=== PATIENT | male | born 1945 | race Caucasian/White ===

== ENCOUNTER → 2020-05-11 14:29 | Outpatient (BNVA) | payer MEDICARE, SELFPAY | PROVIDERS: PCP Internal Medicine; Referring Provider Internal Medicine; Visit Provider Internal Medicine | DX: I25.10 Atherosclerotic heart disease of native coronary artery without angina pectoris (principal); I21.4 Non-ST elevation (NSTEMI) myocardial infarction; I10 Essential (primary) hypertension; Z95.5 Presence of coronary angioplasty implant and graft | CPT/HCPCS: 93005; 99212 ==

== ENCOUNTER 2020-09-27 10:36 | Emergency (ER) | payer MEDICARE, SELFPAY ==
--- NOTE | ~2020-09-27 | XR_ITS ---
EXAMINATION: XR RIBS, LEFT CLINICAL INFORMATION: Fall COMPARISON: Previous chest x-ray December 2018 TECHNIQUE: 3 views of the left ribs and one view of the chest were obtained. FINDINGS: The cardiac and mediastinal contours are normal. The lungs are clear. There is no pleural effusion or pneumothorax. No rib fracture is seen. There are degenerative changes of the thoracic spine. There are degenerative changes at the right shoulder joint. XR/XR ribs LT min 3V w CXR1V IMPRESSION: No rib fracture is seen. No evidence for acute disease in the chest.
[2020-09-27 10:37] VITALS: BP 159/82; PULSE 71; RESP 18; TEMP 36.8; O2SAT 99; BMI 24.3
--- NOTE | 2020-09-27 11:20 | ED.FALL ---
HPI - Fall General Chief Complaint: Fall Stated Complaint: fell pain lt side Time Seen by Provider: 09/27/20 11:15 History of Present Illness HPI Narrative: Complains of left rib pain after a fall. Several days ago, tripped on a debris in the street , there is no shortness of breath is no palpitations there is no difficulty breathing, it does hurt to take a deep breath, pain is not related to exertion there is no diaphoresis abdominal pain or nausea Related Data Home Medications Medication Instructions Recorded Confirmed aspirin 81 mg tablet,delayed 81 mg PO DAILY 05/11/20 05/11/20 release atorvastatin 80 mg tablet 80 mg PO DAILY 05/11/20 05/11/20 metoprolol tartrate 25 mg tablet 25 mg PO BID 05/11/20 05/11/20 Allergies Allergy/AdvReac Type Severity Reaction Status Date / Time No Known Allergies Allergy Verified 05/11/20 09:48 [No Known Allergies*] Review of Systems Review of Systems: Positive for left rib pain There is no dizziness no weakness no fever no chills no fainting no feeling faint no headache no head injury no vision changes no neck pain no numbness weakness or tingling no shortness of breath no abdominal pain no nausea or vomiting no pain in extremities no skin rashes no numbness or weakness PMFSH Past Medical History Source: nursing notes reviewed Medical History Atherosclerotic cardiovascular disease Essential hypertension NSTEMI (non-ST elevated myocardial infarction) Surgical History History of cardiac catheterization (~12/30/18) History of tonsillectomy Stented coronary artery Family History Family History Father Cardiovascular disease Mother Cardiovascular disease Diabetes Social History Social History Smoking Status: Never smoker Advance Directives: Yes Advance Directives Information Provided: Yes Advance Directives on File: No Physical Exam Vital Signs: Vital Signs: Last Vital Signs Temp 98.2 F 09/27/20 10:37 Pulse 71 09/27/20 10:37 Resp 18 09/27/20 10:37 BP 159/82 H 09/27/20 10:37 Pulse Ox 99 09/27/20 10:37 Body Mass Index 24.3 General appearance no acute distress, relaxed and cooperative A&O x3 Head is normocephalic atraumatic Neck is supple The chest wall had tenderness over the left mid and lower rib area, pain is reproduced with deep breath, chest was clear to auscultation bilaterally with full symmetric equal breath sounds The heart no murmurs The abdomen soft and nontender The extremities full range of motion x4 without tenderness swelling or deformity Neuro motor is 5/5 x4 is sensation is intact and symmetrical and gait is normal Course Course Course Narrative: Chest x-ray came back negative with no evident fractures of the left ribs Exam is consistent with occult rib fracture versus contusion and patient is breathing comfortably and ambulating easily and was discharged Discharge Plan Discharge Clinical Impression: Contusion of rib on left side Patient Disposition: Home, Self-Care Additional Instructions: Your x-ray was normal, no obvious rib fracture Use Tylenol as needed Return any time for any worse condition or any concerns Prescriptions: No Action metoprolol tartrate 25 mg tablet 25 mg PO BID RF: 0 aspirin 81 mg tablet,delayed release (DR/EC) 81 mg PO DAILY RF: 0 atorvastatin 80 mg tablet 80 mg PO DAILY RF: 0 Interventions: ED Discharge Assessment Last Done: 09/27/20 12:51 Discharge Date/Time: 09/27/20 12:52
== END 2020-09-27 12:52 | disposition home or self-care (01) ==
PROVIDERS: Emergency Provider Emergency Medicine; PCP Internal Medicine
DX: S20.212A Contusion of left front wall of thorax, initial encounter (principal); W01.0XXA Fall on same level from slipping, tripping and stumbling without subsequent striking against object, initial encounter; I10 Essential (primary) hypertension; I25.2 Old myocardial infarction; Y93.01 Activity, walking, marching and hiking; Y92.480 Sidewalk as the place of occurrence of the external cause; Y99.9 Unspecified external cause status
CPT/HCPCS: 71101; 99283

== ENCOUNTER → 2021-04-19 12:56 | Outpatient (REF) | payer MEDICARE, SELFPAY ==
--- NOTE | 2021-04-19 13:02 | CA_ITS ---
Transthoracic Echocardiogram Patient (Last, First, Middle): Nain Vizcaino, Gender: Male Date of : 1945 Age: 75 Procedure Date: 04/19/2021 Procedure Type: Transthoracic Echocardiogram Location: OP Height: 167.64 cm Weight: 70.76 kg BSA: 1.80 m2 Heart Rate: bpm BP: 130 / 80 mmHg Irrigation Manager: Referring MD: Victoriano Lee MD Symptoms: I21.4 - Non-ST elevation (NSTEMI) myocardial infarction Study Quality: Good ECG Rhythm: Sinus Conclusions: - The left ventricular systolic function is low normal. The calculated ejection fraction is 52% by biplane method. - Possible mild hypokinesis at basal inferior wall. - No obvious valvular pathology seen on this study. Findings Left Ventricle Normal left ventricular cavity size. There is mildly increased left ventricular wall thickness. The left ventricular systolic function is low normal. The calculated ejection fraction is 52% by biplane method. E/E prime ratio is between 8 and 15 consistent with indeterminate filling pressures. Evidence suggests grade I (mild) diastolic dysfunction. Possible mild hypokinesis at basal inferior wall. Right Ventricle Normal right ventricular cavity size and systolic function. Atria Both atria are normal in size. Aortic Valve There is a normal trileaflet aortic valve. There is no aortic valve stenosis. There is no aortic valve regurgitation. Mitral Valve The mitral valve appears normal. There is trace mitral valve regurgitation. There is no mitral valve stenosis. Pulmonic Valve The pulmonic valve was not well visualized. Tricuspid Valve Normal tricuspid valve structure. There is trace tricuspid valve regurgitation. The pulmonary artery systolic pressure is normal. Great Vessels The aortic annulus, sinuses of valsalva, and asc aorta are normal in size. Venous The inferior vena cava is normal in size and collapses greater than 50% with inspiration. Pericardium/Pleural There is no evidence of pericardial effusion. Prior Study Comparison Changes noted compared to prior study dated: 02/27/2019. Slight decrease in LVEF. Recommendations, Care & Conclusions No obvious valvular pathology seen on this study. Measurements 2D Linear Measurements IVSd: 1.20 0.6-0.9/0.6-1.0 cm LVIDd: 4.08 3.9-5.3/4.2-5.9 cm LVIDd Index: 2.27 2.4-3.2/2.2-3.1 cm/m2 LVIDs: 2.70 2.0-3.6 cm LVPWd: 1.26 0.7-1.1 cm Ao Root: 3.40 2.1-3.5 cm LA Diam: 3.70 2.7-3.8/3.0-4.0 cm LAIDs Index: 2.06 1.5-2.3 cm/m2 LV Mass: 220.28 67-162/88-224 g LV Mass Index: 122.38 43-95/49-115 g/m2 LVOT Diam: 2.40 3.0+(-)1.3 cm 2D Systolic Function EF 4C: 58.30 >55% EF 2C: 48.20 >55% EF BiP: 52.00 >55% Mitral Valve MV Pk E: 0.51 MV PK A: 0.85 MV Decel Time: 263.00 E/A: 0.60 E'Lateral: 6.96 E'Medial: 4.03 E/E' Med: 12.70 E/E' Lat: 7.30 PHT: 77.00 MVA PHT: 2.86 Decel Cuming: 1.94 Aortic Valve AoV Pk Law: 1.13 AoV Mn Law: 0.66 AoV VTI: 0.23 AoV Pk Grad: 5.00 Aov Mn Grad: 2.00 YAW Cont.VTI: 3.10 LVOT LVOT Pk Law: 0.85 LVOT Mn Law: 0.51 LVOT VTI: 0.16 LVOT Pk Grad: 3.00 LVOT Mn Grad: 1.00 LVOT Diam: 2.40 LVOT Area: 4.52 Diastolic Function MV Pk E: 0.51 MV Pk A: 0.85 E/A: 0.60 E'Medial: 4.03 E/E' Med: 12.70 E' Laterial: 6.96 E/E' Lat: 7.30 Right Ventricle TAPSE (mm): 34.00 TVS' Law: 11.00 Tricuspid Valve TR Pk Law: 1.98 TR Pk Grad: 16.00 Great Vessels Aorta Ao Root-2D: 3.40 2.0-3.7 cm Ao Asc: 3.50 2.1-3.4 cm Pulmonary Valve PV Pk Law: 1.14 Peak PV Grad: 5.00 Updated in Other Vendor System with Status of Final Victoriano Lee MD electronically signed on 04/19/2021 5:11:28 PM with status of Final
== END ==
LOC: HO.CARD 12:56
PROVIDERS: PCP Internal Medicine; Visit Provider Internal Medicine
DX: I21.4 Non-ST elevation (NSTEMI) myocardial infarction (principal)
CPT/HCPCS: 93306

== ENCOUNTER → 2021-05-11 14:08 | Outpatient (BNVA) | payer MEDICARE, SELFPAY | PROVIDERS: PCP Internal Medicine; Referring Provider Internal Medicine; Visit Provider Internal Medicine | DX: I25.10 Atherosclerotic heart disease of native coronary artery without angina pectoris (principal); I10 Essential (primary) hypertension; Z95.5 Presence of coronary angioplasty implant and graft | CPT/HCPCS: 93005; 99212 ==

== ENCOUNTER 2021-08-10 13:11 | Outpatient (REF) | payer MEDICARE, SELFPAY ==
[2021-08-10 13:30] LABS: Binax Internal Control QC Valid; Binax Now Covid-19 Ag Negative (Negative)
== END 2021-08-10 13:12 | disposition home or self-care (01) ==
LOC: HO.LAB 13:11
PROVIDERS: Visit Provider Internal Medicine
DX: Z20.822 Contact with and (suspected) exposure to COVID-19 (principal)
CPT/HCPCS: C9803

== ENCOUNTER → 2021-11-09 13:24 | Outpatient (BNVA) | payer MEDICARE, SELFPAY | PROVIDERS: PCP Internal Medicine; Referring Provider Internal Medicine; Visit Provider Internal Medicine | DX: I25.10 Atherosclerotic heart disease of native coronary artery without angina pectoris (principal); I10 Essential (primary) hypertension; Z95.5 Presence of coronary angioplasty implant and graft | CPT/HCPCS: 93005; 99212 ==

== ENCOUNTER 2022-02-10 10:21 | Emergency (ER) | payer MEDICARE, SELFPAY ==
[2022-02-10 10:27] VITALS: BP 165/87; PULSE 89; RESP 18; TEMP 36.8; O2SAT 97; BMI 25.7
--- NOTE | 2022-02-10 11:19 | ED.GENADULT ---
HPI - General Adult General Chief complaint: Wound/Laceration Stated complaint: wasp sting on L leg Time Seen by Provider: 02/10/22 11:19 Source: patient Mode of arrival: ambulatory Limitations: no limitations History of Present Illness HPI narrative: Patient is a 76 year old male presenting to the emergency department today with wasp stings to his left lower leg. Patient states that he was bit by a couple of wasps a couple of days ago and has been trying hydrocortisone cream but it is still very itchy. Patient denies any dizziness, lightheadedness, abdominal pain, nausea, vomiting, fever, chills, blurry vision, double vision, loss of vision, chest pain, difficulty breathing, shortness of breath, back pain, night sweats, pain with urination, increased urinary frequency, increased urinary urgency, blood in his urine or stool, syncope or a near syncopal episode, recent trauma or falls, bowel incontinence, bladder incontinence, bowel retention, bladder retention, or any other complaints at this time. Onset (ago): day(s) Location: right and lower extremity Radiation: non-radiation Severity: mild Severity scale (1-10): 2 Quality: dull Relieving factors: none Exacerbating factors: none Associated symptoms: denies other symptoms Treatments prior to arrival: none Related Data Previous Rx's Medication Instructions Recorded aspirin 81 mg tablet,delayed 81 mg PO DAILY 90 days #90 tabs 01/20/21 release metoprolol tartrate 25 mg tablet 25 mg PO BID #180 tabs 08/19/21 atorvastatin 80 mg tablet 80 mg PO DAILY 90 days #90 tabs 08/22/21 prednisone 20 mg tablet 20 mg PO DAILY 10 days #15 tabs 02/10/22 Allergies Allergy/AdvReac Type Severity Reaction Status Date / Time No Known Allergies Allergy Verified 11/09/21 13:28 [No Known Allergies*] Review of Systems Constitutional: Constitutional: Reports no additional constitutional complaints, Denies chills, Denies fever(s) and Denies night sweats Eyes: Eyes: Reports no additional eye complaints, Denies blurry vision, Denies change in vision, Denies diplopia, Denies eye discharge, Denies loss of vision and Denies eye pain ENT: Denies dizziness Cardiovascular: Cardiovascular: Reports no additional cardiovascular complaints, Denies chest pain, Denies lightheadedness, Denies Loss of Consciousness and Denies dyspnea Respiratory: Respiratory: Reports no additional respiratory complaints and Denies dyspnea Gastrointestinal: Gastrointestinal: Reports no additional gastrointestinal complaints, Denies abdominal pain, Denies melena, Denies hematochezia, Denies change in bowel habits and Denies change in stool character Genitourinary: Genitourinary: Reports no additional male genitourinary complaints, Denies hematuria, Denies oliguria, Denies difficulty urinating, Denies dysuria, Denies urinary frequency, Denies urinary hesitancy, Denies urinary incontinence and Denies urinary urgency Musculoskeletal: Musculoskeletal: Reports no additional musculoskeletal complaints, Denies numbness and Denies tingling Comments: left lower leg swelling and redness around 2 insect bites Neurologic: Denies dizziness, Denies loss of vision, Denies numbness and Denies tingling Psychiatric: Psychiatric: Reports no additional psychiatric complaints Endocrine: Endocrine: Reports no additional endocrine complaints Hematologic/Lymphatic: Hematologic/Lymphatic: Reports no additional hematologic/lymphatic complaints Allergic/Immunologic: Allergic/Immunologic: Reports no additional allergic/immunologic complaints PMFSH Past Medical History Attestation statement: The following information was validated with the patient. Source: old records reviewed Medical History Atherosclerotic cardiovascular disease Essential hypertension NSTEMI (non-ST elevated myocardial infarction) Surgical History History of cardiac catheterization (~12/30/18) History of tonsillectomy Stented coronary artery Family History Family History Father Cardiovascular disease Mother Cardiovascular disease Diabetes Social History Social History Patient Tobacco Use Status: Never used Tobacco Advance Directives: No Physical Exam ED Vital Signs: Vital Signs - 24 hr 02/10/22 10:27 Temperature 98.2 F Pulse Rate 89 Respiratory Rate 18 Blood Pressure 165/87 H Pulse Oximetry 97 Oxygen Delivery Method Room Air BMI result Body Mass Index 25.7 Const General: cooperative, no acute distress, alert and awake Nutritional Appearance: well nourished Orientation/consciousness: patient oriented x3 Limitations: no limitations HENMT Head: Yes normal to inspection and Yes atraumatic Ears: hearing grossly normal bilaterally and external ears normal General nose exam: Normal external nose present, no nasal discharge noted and no epistaxis Face and sinus: Yes normal facial exam, No abrasion and No laceration Mouth: Normal oral and palatal mucosa present, no drooling and no muffled voice Eyes General: appearance normal, both eyes and all related structures Periorbital: periorbital findings normal Eyelids: Yes eyelids normal Conjunctivae: conjunctivae normal Pupils: Equal, round and reactive pupils present EOM: EOMs intact bilaterally Neck Neck: Yes normal visual inspection, Yes full ROM and Yes no lymphadenopathy Chest Chest palpation & inspection: normal inspection of the chest Resp Effort & Inspection: normal respiratory effort and able to speak in complete sentences Auscultation: clear to auscultation bilaterally Cardio Rate: regular rate Rhythm: regular rhythm GI Inspection: Yes normal to inspection Skin Other: 2 small insect bites to the left lower leg, with minimal erythema around them Neuro General: patient oriented x3 and moves all extremities Cranial nerves: Yes Equal, round and reactive pupils present Cognition (Neuro): normal cognition Motor exam (neuro): 5/5 motor strength present throughout Sensory Exam: Normal double simultaneous stimulation for sensation Coordination: [id number] test normal Extrem General: Yes normal to inspection, Yes full ROM and Yes capillary refill normal Psych Appearance: grossly normal Mental Status: mental status grossly normal Affect: normal affect Attitude: cooperative Thought process: Normal thought process present Thought content: Normal thought content present Insight: Good insight present (Psych) Medical Decision Making MDM Narrative Medical decision making narrative: Patient is a 76 year old male presenting to the emergency department today with insect bites to his left lower leg. Patient's physical exam showed 2 insect bites to the left lower leg with minimal erythema surrounding them. I explained my physical exam findings to the patient. I answered all questions asked by the patient. I stressed the importance of the patient taking his medication as prescribed. I stressed the importance of the patient following up with his primary care provider. I stressed the importance of the patient returning to the emergency department immediately if his symptoms were to worsen or if he were to develop any dizziness, shortness of breath, difficulty breathing, chest pain, blurry vision, loss of vision, nausea, vomiting, abdominal pain, fever, chills, back pain, or any other complaints. Patient verbalized agreement and understanding with this treatment plan and discharge. Differential Diagnosis Differential Diagnosis: insect bites Medical Records Medical records reviewed: Yes I reviewed the patient's medical records. Discharge Plan Discharge Clinical Impression: Insect bite Patient Disposition: Home, Self-Care Instructions: Insect Bite or Sting (ED) Additional Instructions: Follow up with your primary care provider. Return to the emergency department immediately if your symptoms worsen or if you develop any dizziness, shortness of breath, difficulty breathing, chest pain, blurry vision, loss of vision, nausea, vomiting, abdominal pain, fever, chills, back pain, or any other complaints. Prescriptions: New prednisone 20 mg tablet 20 mg PO DAILY 10 Days Qty: 15 0RF Rx Instructions: Take 2 tabs for 5 days THEN; take 1 tab for 5 days No Action aspirin 81 mg tablet,delayed release (DR/EC) 81 mg PO DAILY 90 Days Qty: 90 4RF metoprolol tartrate 25 mg tablet 25 mg PO BID Qty: 180 3RF atorvastatin 80 mg tablet 80 mg PO DAILY 90 Days Qty: 90 3RF Referrals: Urban Alcaraz MD [Primary Care Provider] - Interventions: ED Discharge Assessment Last Done: 02/10/22 11:55 Discharge Date/Time: 02/10/22 11:56 Print Language: Kazakh
== END 2022-02-10 11:56 | disposition home or self-care (01) ==
PROVIDERS: Emergency Provider Student in an Organized Health Care Education/Training Program; PCP Internal Medicine
DX: T63.461A Toxic effect of venom of wasps, accidental (unintentional), initial encounter (principal); L29.9 Pruritus, unspecified; Y92.9 Unspecified place or not applicable
CPT/HCPCS: 99282; 99283

== ENCOUNTER 2022-08-14 15:43 | Outpatient (REF) | payer MEDICARE, SELFPAY ==
--- NOTE | ~2022-08-14 | CT_ITS ---
EXAMINATION: CT ABDOMEN WITHOUT AND WITH CONTRAST CLINICAL INFORMATION: LFT elevation. COMPARISON: None TECHNIQUE: Contiguous axial thin section helical images of the abdomen were performed before and after the administration of oral contrast and 85 mL of Omnipaque 350 intravenous contrast. The data set was reformatted in the coronal and sagittal planes and reviewed on an independent workstation. This CT examination was performed using dose optimization techniques as appropriate, variously including the following: *Automated exposure control *Adjustment of mA and/or kV according to patient size (this includes techniques or standardized protocols for targeted exams where dose is matched to indication/reason for exam; i.e. extremities or head) *Use of iterative reconstruction technique DLP: 699 mGy-cm FINDINGS: LUNG BASES: The lung bases are clear. The heart size is normal. 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 LIVER, GALLBLADDER, AND BILIARY TREE: The liver is normal size, contour and density. No focal lesion or intrahepatic ductal dilatation seen. Main and the right and left portal veins are well opacified. The hepatic veins are small but patent. The splenic vein is patent. There is no visualization of varices. PANCREAS: The pancreas is homogeneous in density without focal lesion. SPLEEN: The spleen is normal size and appears unremarkable. ADRENAL GLANDS AND KIDNEYS: Bilateral adrenal glands are symmetric and normal. 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 There is a small nonenhancing hypodensity upper pole left kidney likely small cyst. There are bilateral extrarenal kidney pelvises. BOWEL LOOPS: There is scattered stool and gas seen throughout the colon without significant distention. The small bowel loops are normal caliber. Appendix is not seen. No free air or free fluid seen. LYMPH NODES: Normal. VASCULAR: Unremarkable. BONES: There is mild degenerative disc changes with vacuum disc phenomena and ventral spondylosis L2-L3 through L5-S1 disc levels. No aggressive lytic or sclerotic process seen. CT/CT abdomen wo/w IV con IMPRESSION: 1. No acute intra-abdominal process seen. 2. 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 3. Small cyst upper pole left kidney. Bilateral extrarenal kidney pelvises. 4. Mild constipation. 5. 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 6. Degenerative disc changes with vacuum disc phenomena and ventral spondylosis L2-L3 through L5-S1 disc levels. Fleischner guidelines were followed.
[2022-08-14] MEDS: iohexoL 350 MG/ML 100 ML INFUS..BTL 85 ML IV (16:54)
== END 2022-08-14 15:44 | disposition home or self-care (01) ==
LOC: HO.CT 15:43
PROVIDERS: Visit Provider Internal Medicine
DX: R79.89 Other specified abnormal findings of blood chemistry (principal)
CPT/HCPCS: 74170; Q9967

== ENCOUNTER 2022-09-16 04:58 | Emergency (ER) | payer MEDICARE, SELFPAY ==
--- NOTE | 2022-09-16 | ECG_ITS ---
Test Reason : CHEST PAIN Blood Pressure : / mmHG Vent. Rate : 075 BPM Atrial Rate : 075 BPM P-R Int : 144 ms QRS Dur : 092 ms QT Int : 382 ms P-R-T Axes : 053 007 018 degrees QTc Int : 426 ms Normal sinus rhythm Minimal voltage criteria for LVH, may be normal variant ( R in aVL ) Borderline ECG When compared with ECG of 26-DEC-2018 07:53, No significant change was found Referred By: Generic ED Physician Electronically Signed By:TAI LEIVA MD
--- NOTE | ~2022-09-16 | US_ITS ---
EXAMINATION: ULTRASOUND DUPLEX ARTERIAL AND VENOUS EXAM CLINICAL INFORMATION: Epigastric pain. Known IVC mass. COMPARISON: None TECHNIQUE: Routine ultrasound duplex arterial study of portal and hepatic veins and hepatic artery was performed. FINDINGS: Portal veins: There is normal patency and hepatopedal flow seen in the extrahepatic portal vein, main portal vein, right and left portal vein branches. Hepatic artery: There is normal antegrade flow seen in the main, right and left hepatic artery. Peak systolic velocity measures 64.7 cm/second. In the main hepatic artery. The right hepatic artery velocity measures 33.2 cm/second in the left hepatic artery velocity measures 87.7 cm/second. Hepatic veins: The right and left hepatic vein and the main hepatic veins are patent. 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 Splenic vein: patent. US/US duplex arterial venous comp IMPRESSION: Normal liver Doppler exam. There is antegrade flow seen in the portal veins. Hepatic and splenic veins are patent. Normal IVC wave form. The hepatic artery has antegrade flow and normal velocities
[2022-09-16 05:04] VITALS: BP 133/80; BP 146/81; PULSE 70; PULSE 77; RESP 16; TEMP 36.7; O2SAT 94; O2SAT 97; BMI 26.6
[2022-09-16 05:29] VITALS: BP 131/74; PULSE 77; RESP 13; O2SAT 98
--- NOTE | 2022-09-16 05:32 | ED.CHESTPAIN ---
HPI - Chest Pain General Chief Complaint: Chest Pain Stated Complaint: Chest Pain Time Seen by Provider: 09/16/22 05:32 Source: patient Mode of arrival: EMS History of Present Illness HPI narrative: This is a pleasant 77-year-old male who arrives via EMS no me called due to onset of epigastric/chest pain that started approximately 130 in the morning and woke him from sleep. Patient states that he took his nitro pills as prescribed by Dr. Lee as well as taking to aspirin. Patient states that the pain continued which prompted him to call EMS. EN route EMS gave him 2 additional aspirin and patient arrives asymptomatic for chest pain or epigastric discomfort. His history is significant for an IVC mass that his ground instructor basic, Dr. Lee as well has vascular surgeon Dr. Aragon are aware of. Patient has an appointment on 09/[address] Otoniel ramirez at [facility] for further evaluation of this mass. Related Data Previous Rx's Medication Instructions Recorded prednisone 20 mg tablet 20 mg PO DAILY 10 days #15 tabs 02/10/22 atorvastatin 80 mg tablet 80 mg PO DAILY 90 days #90 tabs 08/16/22 aspirin 81 mg tablet,delayed 81 mg PO DAILY #90 tabs 08/18/22 release metoprolol tartrate 25 mg tablet 25 mg PO BID #180 tabs 08/23/22 Allergies Allergy/AdvReac Type Severity Reaction Status Date / Time No Known Allergies Allergy Verified 11/09/21 13:28 [No Known Allergies*] Review of Systems Review of Systems: Pertinent positives and negatives as stated in HPI PMFSH Past Medical History Source: nursing notes reviewed Medical History Atherosclerotic cardiovascular disease Essential hypertension NSTEMI (non-ST elevated myocardial infarction) Surgical History History of cardiac catheterization (~12/30/18) History of tonsillectomy Stented coronary artery Family History Family History Father Cardiovascular disease Mother Cardiovascular disease Diabetes Social History Social History Alcohol intake: current Alcohol intake frequency: holidays/special occasions only Patient Tobacco Use Status: Never used Tobacco Smoked in Last 30 Days: No Use of substances other than those prescribed or required for medical reasons: No Advance Directives: No Advance Directives Information Provided: No Physical Exam Vital Signs: Vital Signs: Last Vital Signs Temp 98.1 F 09/16/22 05:04 Pulse 77 09/16/22 05:29 Resp 13 09/16/22 05:29 BP 131/74 09/16/22 05:29 Pulse Ox 98 09/16/22 05:29 O2 Del Method 09/16/22 05:29 BMI result Body Mass Index 26.6 VITAL SIGNS: Reviewed. GENERAL: Well developed, well nourished, in no acute distress. HEAD: Normocephalic/atraumatic EYES: PERRLA, EOMI LUNGS: Normal breath sounds. No adventitious sounds or accessory muscle use. SpO2<98> CARDIOVASCULAR: Regular rate and rhythm without noted murmurs, no JVD or lower extremity edema. ABDOMEN: Soft, non-tender, non-distended with bowel sounds. MUSCULOSKELETAL: No tenderness, deformities, or effusions noted on gross inspection. EXTREMITIES: No cyanosis, clubbing or edema. SKIN: Inspection of the skin reveals no rashes NEUROLOGIC: Alert and oriented x 4. Strength and sensation to light touch were grossly intact x 4. Medical Decision Making Medical Decision Making MDM Narrative: 77-year-old male with history and clinical presentation suggestive of possible angina. On review all investigations at this time there are no acute findings and patient remains asymptomatic. Signed out to Dr Grace Singh #2 - Abd Ultrasound Differential Diagnosis Please see the discussion above Lab Data Please see the discussion above 09/16/22 05:32 09/16/22 05:32 Labs: Lab Results 09/16/22 09/16/22 09/16/22 Range/Units 05:32 05:32 05:32 WBC 8.1 (4.8-10.8) X10*3/uL RBC 4.53 L (4.60-5.80) X10*6/uL Hgb 14.4 (14.0-18.0) g/dl Hct 43.8 (42.0-52.0) % MCV 96.7 (80.0-98.0) fL MCH 31.8 (27.0-33.0) pg MCHC 32.9 (31.0-36.0) g/dl RDW 12.5 (11.0-16.0) % Plt Count 172 (160-400) X10*3/uL MPV 10.5 (9.4-12.4) fL Immature Gran % (Auto) 0.2 (0.0-0.4) % Neut % (Auto) 72.2 (45-73) % Lymph % (Auto) 15.9 L (20-40) % [place] % (Auto) 9.0 (2-11) % Eos % (Auto) 2.2 (0-4) % Baso % (Auto) 0.5 (0-2) % Lymph # (Auto) 1.3 (1.2-4.9) X10*3/uL [place] # (Auto) 0.7 (0.1-1.2) X10*3/uL Eos # (Auto) 0.2 (0.0-0.4) X10*3/uL Baso # (Auto) 0.0 (0.0-0.2) X10*3/uL Abs Immat Gran (auto) 0.02 (0.00-0.03) X10*3/uL Absolute Neuts (auto) 5.8 (2.0-8.3) x10*3/uL Absolute Nucleated RBC 0.000 (0.0-0.012) X10*3/uL Nucleated RBC % (auto) 0.0 (0.0-0.2) /100WBC Sodium 140 (135-145) mmol/L Potassium 4.7 (3.3-5.1) mmol/L Chloride 109 H (96-108) mmol/L Carbon Dioxide 23 (22-29) mmol/L Anion Gap 13 (12-20) BUN 13 (9-16) mg/dL Creatinine 0.68 (0.5-1.4) mg/dL Estim Creat Clear Calc 79.4 Estimated GFR > 60 Random Glucose 100 (60-115) mg/dL Calcium 8.8 (8.4-10.2) mg/dL Troponin I High Sens 4.3 (<3.5-35.0) ng/L Independent Interpretation I performed an independent interpretation of an: EKG Interpretation: Normal sinus rhythm, HR-75, no STEMI, CT/QRS/QTC is within normal limits. External Record Review External record reviewed: Outpatient record and Prior outpatient labs Chronic Conditions CAD Critical Care Time Critical Care Time Critical Care Time: Yes Total Critical Care Time: 30 Attestation: I personally attest to this time spent taking care of the patient. Discharge Plan Discharge Clinical Impression: Chest pain Patient Disposition: Still a Patient Prescriptions: No Action atorvastatin 80 mg tablet 80 mg PO DAILY 90 Days Qty: 90 3RF aspirin 81 mg tablet,delayed release (DR/EC) 81 mg PO DAILY Qty: 90 3RF metoprolol tartrate 25 mg tablet 25 mg PO BID Qty: 180 3RF prednisone 20 mg tablet 20 mg PO DAILY 10 Days Qty: 15 0RF Rx Instructions: Take 2 tabs for 5 days THEN; take 1 tab for 5 days
[2022-09-16 05:40] LABS: MANUAL DIFF FLAG NO
[2022-09-16 05:41] LABS: Basophils Percent Auto 0.5 % (0-2); Eosinophils Absolute Auto 0.2 X10*3/uL (0.0-0.4); Eosinophils Percent Auto 2.2 % (0-4); Hematocrit 43.8 % (42.0-52.0); Hemoglobin 14.4 g/dl (14.0-18.0); Imm Gran Abs Auto 0.02 X10*3/uL (0.00-0.03); Imm Gran Pct Auto 0.2 % (0.0-0.4); Lymphocytes Absolute Auto 1.3 X10*3/uL (1.2-4.9); Lymphocytes Percent Auto 15.9 % (20-40); Mean Corpuscular HGB Conc 32.9 g/dl (31.0-36.0); Mean Corpuscular Hemoglobin 31.8 pg (27.0-33.0); Mean Corpuscular Volume 96.7 fL (80.0-98.0); Mean Platelet Volume 10.5 fL (9.4-12.4); Monocytes Absolute Auto 0.7 X10*3/uL (0.1-1.2); Neutrophils Absolute Auto 5.8 x10*3/uL (2.0-8.3); Neutrophils Percent Auto 72.2 % (45-73); Platelet Count 172 X10*3/uL (160-400); Red Blood Count 4.53 X10*6/uL (4.60-5.80); Red Cell Distribution Width 12.5 % (11.0-16.0); White Blood Count 8.1 X10*3/uL (4.8-10.8)
--- NOTE | 2022-09-16 05:50 | PC.NURSE ---
Pt A&Ox4, reports waking up around 0130 this AM and feeling a dull pain in substernal chest, nonradiating. Rates pain 3/10, now resolved after taking 3 nitros and 2 baby asprins, EMS also gave an adition of 2 baby asprins. Pt placed on bedside monitor, EKG obtained, lab work collected and sent to lab.
[2022-09-16 05:54] LABS: Anion Gap 13 (12-20); Blood Urea Nitrogen 13 mg/dL (9-16); Calcium 8.8 mg/dL (8.4-10.2); Carbon Dioxide 23 mmol/L (22-29); Chloride 109 mmol/L (96-108); Creatinine Clr Calc Pharmacy 79.4; Estimated Glomerular Filt Rate > 60; Glucose Random 100 mg/dL (60-115); Potassium 4.7 mmol/L (3.3-5.1); Sodium 140 mmol/L (135-145)
[2022-09-16 06:02] LABS: Troponin-I High Sensitivity 4.3 ng/L (<3.5-35.0)
--- NOTE | 2022-09-16 09:17 | PC.NURSE ---
pt moved to bed 21 d/t increased agression of pt in 14, was previously in bed 15. pt upset, asking to speak w doctor bc, tests were done hours ago . provider aware.
[2022-09-16 09:41] VITALS: BP 121/65; PULSE 102; RESP 16; TEMP 36.8; O2SAT 98
== END 2022-09-16 09:42 | disposition home or self-care (01) ==
PROVIDERS: Student in an Organized Health Care Education/Training Program; Emergency Provider Emergency Medicine; PCP Internal Medicine
DX: R07.9 Chest pain, unspecified (principal); I10 Essential (primary) hypertension; Z79.02 Long term (current) use of antithrombotics/antiplatelets; Z79.82 Long term (current) use of aspirin; Z79.899 Other long term (current) drug therapy
CPT/HCPCS: 36415; 80048; 84484; 85025; 93005; 93975; 99284; 99285

== ENCOUNTER → 2022-11-13 13:53 | Outpatient (BNVA) | payer MEDICARE, SELFPAY | PROVIDERS: PCP Internal Medicine; Referring Provider Internal Medicine; Visit Provider Internal Medicine | DX: I25.10 Atherosclerotic heart disease of native coronary artery without angina pectoris (principal); I10 Essential (primary) hypertension; Z95.5 Presence of coronary angioplasty implant and graft | CPT/HCPCS: 99212 ==

== ENCOUNTER 2023-10-04 10:50 | Emergency (ER) | payer MEDICARE, SELFPAY ==
--- NOTE | ~2023-10-04 | XR_ITS ---
EXAMINATION: XR LUMBAR SPINE XR LEFT HIP WITH AP PELVIS CLINICAL INFORMATION: Nontraumatic left hip pain. Pain with ambulation. COMPARISON: CT abdomen from 08/14/2022. TECHNIQUE: Lumbar spine, 3 views Left hip, 2 views Pelvis, AP view FINDINGS: Lumbar spine: No acute abnormalities compared to 08/14/2022. No vertebral compression fractures. 11 degrees of lumbar dextroscoliosis is measured from the superior endplate of L1 to the inferior plate of L4 with apex of curvature at L3. Multilevel degenerative disc disease (as manifest by narrowing of disc spaces, endplate sclerosis, vacuum disc phenomenon and osteophyte formation). Cukvgvzu-lx-kzilbs facet arthropathy and approximately 0.5 cm of grade 1 anterolisthesis at L4-L5. The frontal radiograph shows mild degenerative right lateral listhesis of L3 on L4. Sacrum and sacroiliac joints are unremarkable. There are three metallic markers projecting over the lower pelvis. Left hip: The osseous pelvic ring is intact. Alignment is normal at the sacroiliac joints, pubic symphysis and hips. At the left hip, femoral head is well-positioned within the acetabulum. The joint space is well-preserved. There is no radiographic evidence of any significant degenerative or inflammatory arthritic process. The soft tissues around the hip are unremarkable. XR/XR lumbar spine 2-3V IMPRESSION: * Mild dextroscoliosis and multilevel degenerative disc disease of the lumbar spine. * Also, findings include facet osteoarthritis and 0.5 cm of grade 1 anterolisthesis of L4 on L5. * No significant findings at the left hip.
--- NOTE | ~2023-10-04 | XR_ITS ---
EXAMINATION: XR LUMBAR SPINE XR LEFT HIP WITH AP PELVIS CLINICAL INFORMATION: Nontraumatic left hip pain. Pain with ambulation. COMPARISON: CT abdomen from 08/14/2022. TECHNIQUE: Lumbar spine, 3 views Left hip, 2 views Pelvis, AP view FINDINGS: Lumbar spine: No acute abnormalities compared to 08/14/2022. No vertebral compression fractures. 11 degrees of lumbar dextroscoliosis is measured from the superior endplate of L1 to the inferior plate of L4 with apex of curvature at L3. Multilevel degenerative disc disease (as manifest by narrowing of disc spaces, endplate sclerosis, vacuum disc phenomenon and osteophyte formation). Hhbcqsyg-qe-jqyjvv facet arthropathy and approximately 0.5 cm of grade 1 anterolisthesis at L4-L5. The frontal radiograph shows mild degenerative right lateral listhesis of L3 on L4. Sacrum and sacroiliac joints are unremarkable. There are three metallic markers projecting over the lower pelvis. Left hip: The osseous pelvic ring is intact. Alignment is normal at the sacroiliac joints, pubic symphysis and hips. At the left hip, femoral head is well-positioned within the acetabulum. The joint space is well-preserved. There is no radiographic evidence of any significant degenerative or inflammatory arthritic process. The soft tissues around the hip are unremarkable. XR/XR hip LT w PEL1V IMPRESSION: * Mild dextroscoliosis and multilevel degenerative disc disease of the lumbar spine. * Also, findings include facet osteoarthritis and 0.5 cm of grade 1 anterolisthesis of L4 on L5. * No significant findings at the left hip.
[2023-10-04 11:05] VITALS: BP 126/70; PULSE 72; O2SAT 95
[2023-10-04 11:06] VITALS: BP 153/82; PULSE 70; RESP 16; TEMP 36.7; O2SAT 95; BMI 27.7
--- NOTE | 2023-10-04 11:22 | ED.BACK ---
HPI - Back Pain/Injury General Chief Complaint: Back Pain/Injury Stated Complaint: HIP PAIN X 1 WEEK Time Seen by Provider: 10/04/23 11:04 Source: patient and EMS Mode of arrival: EMS Limitations: no limitations History of Present Illness HPI Narrative: 78 yo male with history of HTN, CAD s/p stent, who presents to the ER from home via EMS for evaluation of left hip and low back pain for the last 2 days. Patient states pain is worse with ambulation. He denies any known injury or trauma recently but fell 1 month ago onto his knees. Did not have hip pain afterward. He has no pain w/ rest it is when he bears weight or tries to walk. Pain is in the left lateral hip and does not radiate. It is severe. He started using a cane yesterday. Taking meloxicam and gabapentin w no improvement. Has appointment with MARGARITA next week. MD elicited complaint: back pain and other (left hip pain) Onset (ago): day(s) (2) Timing: intermittent Severity: severe Similar Symptoms Previously: No Quality: sharp Radiation: none Exacerbating factors: walking Relieving factors: immobilization and supine Context: unknown Associated symptoms: denies other symptoms Work related injury: No Related Data Home Medications Medication Instructions Recorded Confirmed meloxicam 7.5 mg tablet 7.5 mg PO DAILY 11/13/22 11/13/22 Previous Rx's Medication Instructions Recorded aspirin 81 mg tablet,delayed 81 mg PO DAILY #90 tabs 08/18/22 release metoprolol tartrate 25 mg tablet 25 mg PO BID #180 tabs 08/23/22 atorvastatin 80 mg tablet 80 mg PO DAILY #90 tabs 09/25/23 acetaminophen 500 mg tablet 1,000 mg (2 x 500 mg) PO Q8H PRN 10/04/23 (Tylenol Extra Strength) pain #30 tabs Allergies Allergy/AdvReac Type Severity Reaction Status Date / Time No Known Allergies Allergy Verified 11/13/22 14:05 [No Known Allergies*] Review of Systems Review of Systems: Yes all other systems are reviewed and are negative PMFSH Past Medical History Medical History Atherosclerotic cardiovascular disease Essential hypertension NSTEMI (non-ST elevated myocardial infarction) Surgical History History of cardiac catheterization (~06/17/19) History of tonsillectomy Stented coronary artery Family History Family History Father Cardiovascular disease Mother Cardiovascular disease Diabetes Social History Social History Alcohol intake: current Alcohol intake frequency: holidays/special occasions only Patient Tobacco Use Status: Never used Tobacco Advance Directives: No Physical Exam Vital Signs: Vital Signs: Last Vital Signs Temp 98.0 F 10/04/23 13:27 Pulse 73 10/04/23 13:27 Resp 16 10/04/23 13:27 BP 158/78 H 10/04/23 13:27 Pulse Ox 96 10/04/23 13:27 O2 Del Method Room Air 10/04/23 13:27 BMI result Body Mass Index 27.7 Appearance: Alert. Oriented X3. No acute distress. Head: normocephalic, atraumatic. Eyes: Pupils equal, round and reactive to light. ENT: Pharynx normal. No tonsillar swelling or exudate. Neck: Normal inspection. Neck supple. Respiratory: No respiratory distress. Abdomen: Soft and nontender. +BS x4 Back: normal inspection. nontender midline lumbar spine and associated soft tissues Skin: Skin warm and dry. Normal skin color. Normal skin turgor. No rashes. Extremities: No lower extremity edema. No joint swelling. left hip normal to inspection. nontender. full ROM. pain w/ flexion, external rotation. trace LE bilaterally. Neuro/psych: Oriented X 3. No motor deficit. No sensory deficit. CN II-XII intact. Normal speech and cognition. steady gait Medications Administered Discontinued Medications Generic Name Dose Route Start Last Admin Trade Name Freq PRN Reason Stop Dose Admin Acetaminophen 975 mg 10/04/23 12:09 10/04/23 12:20 Acetaminophen 325 Mg Tablet PO 10/04/23 12:10 975 mg ONCE ONE Administration Medical Decision Making Medical Decision Making MDM Narrative: 78 yo male presenting with nontraumtic left hip pain w/ ambulation x2 days. nontender on exam and full ROM of the left hip. pain with flexion and external rotation into hip flexors, ?muscular etiology. his xray today is unremarkable. he is up ambulating with a steady gait, slight limp but using cane w/ improvement. pain improved w/ tylenol given here. stable for d/c home with tylenol added to regimen and f/u with [facility] next week. patient agrees w/ plan. Differential Diagnosis Differential Diagnoses: The differential diagnosis associated with the presentation includes hip fracture, osteoarthritis, DDD, malignancy, bursitis, AVN, muscular injury Admission/Observation Consideration of admission/observation: Escalation of care including admission/observation considered considered obs w/ limited ambulation, possible PT eval but did well on ambulation trial Independent Interpretation I performed an independent interpretation of an: Plain X-Ray Interpretation: TECHNIQUE: Lumbar spine, 3 views Left hip, 2 views Pelvis, AP view FINDINGS: Lumbar spine: No acute abnormalities compared to 08/14/2022. No vertebral compression fractures. 11 degrees of lumbar dextroscoliosis is measured from the superior endplate of L1 to the inferior plate of L4 with apex of curvature at L3. Multilevel degenerative disc disease (as manifest by narrowing of disc spaces, endplate sclerosis, vacuum disc phenomenon and osteophyte formation). Cxcnygmm-ci-klxote facet arthropathy and approximately 0.5 cm of grade 1 anterolisthesis at L4-L5. The frontal radiograph shows mild degenerative right lateral listhesis of L3 on L4. Sacrum and sacroiliac joints are unremarkable. There are three metallic markers projecting over the lower pelvis. Left hip: The osseous pelvic ring is intact. Alignment is normal at the sacroiliac joints, pubic symphysis and hips. At the left hip, femoral head is well-positioned within the acetabulum. The joint space is well-preserved. There is no radiographic evidence of any significant degenerative or inflammatory arthritic process. The soft tissues around the hip are unremarkable. XR/XR lumbar spine 2-3V IMPRESSION: * Mild dextroscoliosis and multilevel degenerative disc disease of the lumbar spine. * Also, findings include facet osteoarthritis and 0.5 cm of grade 1 anterolisthesis of L4 on L5. * No significant findings at the left hip. Radiology Impression Discussion of test interpretation with radiology: I have reviewed the radiologist's reading. Independent Historian Clinical information obtained from an independent historian. History obtained from or confirmed by: EMS External Record Review External record reviewed: Outpatient record, Prior outpatient labs and Prior outpatient radiology prior CT abd 08/14/22 showing Degenerative disc changes with vacuum disc phenomena and ventral spondylosis L2-L3 through L5-S1 disc levels. Prescription Management I considered prescription management with: Pain Medication Chronic Conditions Patient?s care impacted by: Hypertension and Other (CAD) Critical Care Time Critical Care Time Critical Care Time: No Discharge Plan Discharge Clinical Impression: Degenerative disc disease, lumbar, Acute pain of left hip Patient Disposition: Home, Self-Care Instructions: Hip Pain (ED) Additional Instructions: Your hip x-ray today was normal Continue using the cane and bear weight as tolerated Use ice several times per day for 20 minutes at a time for the next 48 hours and then change to heat. Recommend taking tylenol 1,000 mg eveyr 8 hours for pain Continue all of your other medications Follow up with your Primary Care Doctor as well as [facility] as scheduled next week If your pain worsens, if you develop new numbness, tingling, weakness, loss of function or incontinence call 911 or come back to the ER right away for evaluation. Prescriptions: New acetaminophen [Tylenol Extra Strength] 500 mg tablet 1,000 mg PO Q8H PRN (Reason: pain) Qty: 30 0RF No Action aspirin 81 mg tablet,delayed release (DR/EC) 81 mg PO DAILY Qty: 90 3RF metoprolol tartrate 25 mg tablet 25 mg PO BID Qty: 180 3RF atorvastatin 80 mg tablet 80 mg PO DAILY Qty: 90 3RF meloxicam 7.5 mg tablet 7.5 mg PO DAILY Interventions: ED Discharge Assessment Last Done: 10/04/23 13:27 Discharge Date/Time: 10/04/23 13:28
[2023-10-04] MEDS: Acetaminophen 325 MG TABLET 975 MG PO (12:20)
[2023-10-04 13:27] VITALS: BP 158/78; PULSE 73; RESP 16; TEMP 36.7; O2SAT 96
== END 2023-10-04 13:28 | disposition home or self-care (01) ==
PROVIDERS: Emergency Provider Emergency Medicine; PCP Internal Medicine
DX: M51.36 Other intervertebral disc degeneration, lumbar region (principal); M25.552 Pain in left hip; M54.50 Low back pain, unspecified
CPT/HCPCS: 72100; 73502; 99283

== ENCOUNTER 2023-11-15 13:48 | Outpatient (AMB) | payer MEDICARE, SELFPAY ==
[2023-11-15 13:53] VITALS: BP 110/68; PULSE 86; BMI 27.8
--- NOTE | 2023-11-15 13:53 | MHC.OFFVIS ---
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 In 2019, he was admitted for chest pain and diagnosed as NSTEMI. Cardiac catheterization performed with stenting of right coronary artery. Since last seen, no specific complaints. No angina or in fact anything cardiac sounding. [facility] Medical History Atherosclerotic cardiovascular disease Essential hypertension NSTEMI (non-ST elevated myocardial infarction) Surgical History Stented coronary artery History of tonsillectomy History of cardiac catheterization (~12/30/18) Family History Father Cardiovascular disease Mother Cardiovascular disease Diabetes Social History Alcohol intake: current Alcohol intake frequency: holidays/special occasions only Patient Tobacco Use Status: Never used Tobacco Review of Systems Const Denies chills, Denies fatigue, Denies fever(s), Denies frequent falls, Denies weakness, Denies weight gain and Denies weight loss ENT Denies dizziness Card Denies chest pain, Denies leg edema, Denies lightheadedness, Denies palpitations, Denies dyspnea and Denies dyspnea on exertion Resp Denies cough, Denies dyspnea and Denies dyspnea on exertion GI Denies hematochezia Musc Denies abnormal gait, Denies muscle weakness, Denies numbness, Denies radiating pain into limb and Denies tingling Neuro Denies abnormal gait, Denies dizziness, Denies frequent falls, Denies numbness, Denies tingling and Denies weakness Endo Denies fatigue and Denies palpitations Physical Exam Vital Signs: Last Vital Signs Pulse 86 11/15/23 13:53 BP 110/68 11/15/23 13:53 BMI result Body Mass Index 27.8 Const General: comfortable and no acute distress Orientation/consciousness: patient oriented x3 HEENT Other: Unremarkable Head: Yes normal to inspection Neck Neck: Yes normal visual inspection Chest Chest palpation & inspection: normal inspection of the chest Resp Auscultation: clear to auscultation bilaterally Cardio Palpation: normal PMI Heart sounds: S1 normal heart sound present, S2 normal heart sound present, no gallops, no murmurs and no rubs GI Palpation (GI): Soft to palpation Back/Spine/Pelvis Other: unremarkable Skin General skin exam: no rashes or lesions noted Neuro General: patient oriented x3 Extrem General: Yes normal to inspection Psych Mental Status: mental status grossly normal Office Procedures EKG Details: EKG with sinus rhythm at 86/Min; minimal voltage criteria for LVH, maybe normal variant; inferior as well as anterolateral mild ST [place] [id number], Complete Assessment & Plan Assessment & Plan (1) Atherosclerotic cardiovascular disease: Code(s): I25.10 - Atherosclerotic heart disease of [place] coronary artery without angina pectoris Category: Medical (2) Stented coronary artery: Code(s): Z95.5 - Presence of coronary angioplasty implant and graft Category: Surgical (3) Essential hypertension: Code(s): I10 - Essential (primary) hypertension Category: Medical Plan s/p distal RCA drug-eluting stent from 2019. He also had moderate disease in the LAD at that time. Last echocardiogram with LVEF 52%; mild hypokinesis of the basal inferior wall, but otherwise unremarkable. Overall, stable coronary disease. He remains on various meds including aspirin, beta-blockers and high-dose statins. Lost LDL cholesterol 31 mg/dL. Triglycerides 86 mg/dL. Follow-up in 1 year. If any concerns in the interim, he will contact us. Coding Level of Care Code Est Pt Level 4 (51840) Diagnoses Atherosclerotic cardiovascular disease I25.10 Stented coronary artery Z95.5 Essential hypertension I10 CPT Codes EKG - CPT: 10044-[id number], Complete ([id number])
== END 2023-11-15 14:24 | disposition home or self-care (01) ==
PROVIDERS: Visit Provider Internal Medicine
DX: I25.10 Atherosclerotic heart disease of native coronary artery without angina pectoris (principal); Z95.5 Presence of coronary angioplasty implant and graft; I10 Essential (primary) hypertension
CPT/HCPCS: 93010; 99214

== ENCOUNTER → 2023-11-15 13:48 | Outpatient (BNVA) | payer MEDICARE, SELFPAY | PROVIDERS: Visit Provider Internal Medicine | DX: I25.10 Atherosclerotic heart disease of native coronary artery without angina pectoris (principal); I10 Essential (primary) hypertension; Z95.5 Presence of coronary angioplasty implant and graft | CPT/HCPCS: 93005; 99212 ==

== ENCOUNTER 2023-11-19 11:59 | Emergency (ER) | payer MEDICARE, SELFPAY ==
[2023-11-19 12:27] VITALS: BP 133/75; BP 156/82; PULSE 71; PULSE 74; RESP 16; TEMP 36.5; O2SAT 93; O2SAT 96; BMI 28.4
--- NOTE | 2023-11-19 12:42 | ECG_ITS ---
Test Reason : HYPERTENSION Blood Pressure : / mmHG Vent. Rate : 073 BPM Atrial Rate : 073 BPM P-R Int : 132 ms QRS Dur : 088 ms QT Int : 378 ms P-R-T Axes : 040 005 010 degrees QTc Int : 416 ms Normal sinus rhythm Minimal voltage criteria for LVH, may be normal variant ( R in aVL ) Nonspecific ST abnormality Abnormal ECG When compared with ECG of 16-SEP-2022 05:18, No significant change was found Referred By: Ruby Collins Electronically Signed By:Zhen Franz
--- NOTE | 2023-11-19 15:36 | ED.GENADULT ---
HPI - General Adult General Chief complaint: General Medical Stated complaint: DIFFICULTY AMBULATING, RT HIP PAIN PER EMS Time Seen by Provider: 11/19/23 13:35 Source: patient Mode of arrival: EMS History of Present Illness HPI narrative: 78M who arrives via EMS from home requesting MRI of R>L hip pain since Sunday with difficulty ambulating but no associated trauma/fevers/bowel-bladder dysfunction or numbness/tingling. Patient does endorse he was recently having more pain on the left (approx 3 weeks prior) but received an injection which has seemed to help. He also has had multiple Xrays and recent bone density which demonstrated severe arthritis in his back and osteoporosis. Related Data Home Medications ?Medication ?Instructions ?Recorded ?Confirmed meloxicam 7.5 mg tablet 7.5 mg PO DAILY 11/13/22 11/15/23 Previous Rx's ?Medication ?Instructions ?Recorded atorvastatin 80 mg tablet 80 mg PO DAILY #90 tabs 09/25/23 acetaminophen 500 mg tablet 1,000 mg (2 x 500 mg) PO Q8H PRN 10/04/23 (Tylenol Extra Strength) pain #30 tabs metoprolol tartrate 25 mg tablet 25 mg PO BID #180 tabs 10/12/23 aspirin 81 mg tablet,delayed 81 mg PO DAILY #90 tabs 10/23/23 release Allergies Allergy/AdvReac Type Severity Reaction Status Date / Time No Known Allergies Allergy Verified 11/19/23 12:29 [No Known Allergies*] Review of Systems Review of Systems: Pertinent positives and negatives as stated in the HPI [facility] Past Medical History Source: nursing notes reviewed Medical History Atherosclerotic cardiovascular disease Essential hypertension NSTEMI (non-ST elevated myocardial infarction) Surgical History Stented coronary artery History of tonsillectomy History of cardiac catheterization (~12/30/18) Family History Family History Father Cardiovascular disease Mother Cardiovascular disease Diabetes Social History Social History Alcohol intake: current Alcohol intake frequency: 0-2 drinks per day Alcohol type: wine Patient Tobacco Use Status: Never used Tobacco Smoked in Last 30 Days: No Use of substances other than those prescribed or required for medical reasons: No Advance Directives: No Advance Directives Information Provided: Yes Do you have a plan to hurt others: No Plan Physical Exam ED Vital Signs: Vital Signs - 24 hr 11/19/23 12:27 Temperature 97.7 F Pulse Rate 74 Respiratory Rate 16 Blood Pressure 133/75 Pulse Oximetry 93 Oxygen Delivery Method Room Air BMI result Body Mass Index 28.4 VS reviewed GEN: NAD HEENT: wnl Pulm: CTAB CVS: RRR, no murmurs ABD: soft/NT/ND PELVIS: stable, ttp over greater trochanter BACK: no midline ttp or step-offs RLE: no deformity, palpable pulses, sensation intact Medical Decision Making Medical Decision Making MDM Narrative: 78M with history and clinical presentation, DDX: Arthritis, bursitis, overuse pain associated with compensation for Left side. I explained to the patient who ambulates with cane at baseline that there is no indication fro MRI at this time but I offered an XR of hip/pelvis which he initially declined but then agreed to. However, radiology made several attempts to image patient but many times he was in the room of his significant other who was also being evaluated and then became frustrated with the wait time and the lack of MRI. He made the decision to be discharged without the imaging and signed out AMA. He was otherwise stable. Differential Diagnosis Differential Diagnoses: The differential diagnosis associated with the presentation includes See discussion above. Admission/Observation Consideration of admission/observation: Escalation of care including admission/observation considered See discussion above. External Record Review External record reviewed: Outpatient record, Prior outpatient labs and Prior outpatient radiology Critical Care Time Critical Care Time Critical Care Time: Yes Total Critical Care Time: 30 Attestation: I attest to the time spent with this patient. Discharge Plan Discharge Clinical Impression: Arthralgia of hip, right Patient Disposition: Left Against Medical Advice Instructions: Arthralgia (ED) Additional Instructions: Please follow-up with your primary care doctor at your earliest convenience, I also recommend reaching out to your orthopedist to see if they can move up your appointment, you could also discuss with your primary care doctor the possibility of referral to pain management. Prescriptions: No Action atorvastatin 80 mg tablet 80 mg PO DAILY Qty: 90 3RF metoprolol tartrate 25 mg tablet 25 mg PO BID Qty: 180 3RF aspirin 81 mg tablet,delayed release (DR/EC) 81 mg PO DAILY Qty: 90 0RF Rx Instructions: Keep your appt on 11/15/23 at 2:00 pm acetaminophen [Tylenol Extra Strength] 500 mg tablet 1,000 mg PO Q8H PRN (Reason: pain) Qty: 30 0RF meloxicam 7.5 mg tablet 7.5 mg PO DAILY Stand Alone Forms: Against Medical Advice Interventions: ED Discharge Assessment Last Done: 11/19/23 15:56 Discharge Date/Time: 11/19/23 15:30 Print Language: Mongolian
[2023-11-19 15:56] VITALS: BP 133/75; PULSE 74; RESP 16; TEMP 36.5; O2SAT 93
== END 2023-11-19 15:30 | disposition left against medical advice (07) ==
PROVIDERS: Emergency Provider Student in an Organized Health Care Education/Training Program
DX: M16.11 Unilateral primary osteoarthritis, right hip (principal); M25.552 Pain in left hip; M25.551 Pain in right hip; M81.0 Age-related osteoporosis without current pathological fracture; I10 Essential (primary) hypertension
CPT/HCPCS: 93005; 99283; 99284

== ENCOUNTER → 2023-11-19 12:42 | Outpatient (BNV) | payer MEDICARE, SELFPAY | PROVIDERS: Emergency Provider Student in an Organized Health Care Education/Training Program; Visit Provider Internal Medicine Cardiovascular Disease | DX: R94.31 Abnormal electrocardiogram [ECG] [EKG] (principal) | CPT/HCPCS: 93010 ==

== ENCOUNTER 2024-01-18 09:45 | Emergency (ER) | payer MEDICARE, SELFPAY ==
--- NOTE | ~2024-01-18 | XR_ITS ---
EXAMINATION: XR ELBOW, RIGHT CLINICAL INFORMATION: Pain in the right elbow following fall COMPARISON: None available. TECHNIQUE: AP, lateral, and oblique views of the right elbow. FINDINGS: There is no obvious acute fracture seen. There are small posterior and anterior joint effusion suggestive for occult fracture. There is spurring causing medial and lateral epicondyles suggestive for chronic epicondylitis XR/XR elbow RT 2V IMPRESSION: Possible occult fracture of of the elbow with small joint effusion and chronic epicondylitis
--- NOTE | ~2024-01-18 | CT_ITS ---
EXAMINATION: CT HEAD WITHOUT CONTRAST CT CERVICAL SPINE WITHOUT CONTRAST CLINICAL INFORMATION: Status post fall with head and neck trauma COMPARISON: None TECHNIQUE: CT of the head and cervical spine were performed without intravenous contrast. Multiplanar reformats were rendered and reviewed. This CT examination was performed using dose optimization techniques as appropriate, variously including the following: *Automated exposure control *Adjustment of mA and/or kV according to patient size (this includes techniques or standardized protocols for targeted exams where dose is matched to indication/reason for exam; i.e. extremities or head) *Use of iterative reconstruction technique DLP: 714 mGy-cm for the head and 314 mGy-cm of the cervical spine FINDINGS: CT head: No intracranial hemorrhage, large infarction, or mass lesion is seen. No extra-axial collection is appreciated. The ventricles are normal in size and configuration for age without evidence of hydrocephalus. The visualized paranasal sinuses and mastoid air cells are clear. There is small cephalohematoma along the right parietal skull without the association with fractures CT cervical spine: There is straightening of cervical lordosis with multilevel degenerative changes including narrowing of C5-C6, C6-C7 intervertebral 1 anterior listhesis of C5 over C6. There is mild compression deformity of T3 vertebral body only visualized on the lateral view. The craniocervical junction is normal.. The paraspinal soft tissues are within normal limits. The partially imaged lung apices are clear. CT/CT cervical spine wo IV con IMPRESSION: CT HEAD: 1. No acute intracranial finding. 2. Small cephalohematoma along the right parietal skull. CT CERVICAL SPINE: 1. No cervical spine fracture or traumatic malalignment identified. 2. Straightening of cervical lordosis with multilevel degenerative changes and grade 1 anterolisthesis of C5 over C6. 3. Mild compression deformity of T3 vertebral body only visualized on the lateral view.
--- NOTE | ~2024-01-18 | XR_ITS ---
EXAMINATION: XR BILATERAL HIPS WITH AP PELVIS CLINICAL INFORMATION: Status post fall with pain in the right more than left hips COMPARISON: None available. TECHNIQUE: AP view of the pelvis and single views of each hip were obtained. FINDINGS: No fracture. Hip joint spaces are maintained. Alignment is anatomic. Sacroiliac joints and pubic symphysis are normal. No abnormal soft tissue calcifications. XR/XR hip BI w PEL1V IMPRESSION: Normal pelvis and hips.
[2024-01-18 09:52] VITALS: BP 150/77; BP 150/92; PULSE 81; RESP 15; TEMP 36.7; O2SAT 96; O2SAT 98; BMI 26.8
--- OUTSIDE RECORDS SUMMARY | 2024-01-18 10:17 | XMS_ITS | Continuity of Care Document ---
Author Organization [facility] Address [address] [place] [address]- Care Team Providers Care Manga Artist Name Role Phone Kieran CHRISTIANSON, Urban Matthew Primary Care Physician [phone] Encounter [facility] R [id number] Date(s): 09/25/22 - 10/02/22 [facility] [address], [place] [address] Attending Physician: Isidoro Estrada MD Admitting Physician: Isidoro Estrada MD Referring Physician: Ni Lee MD Allergies, Adverse Reactions, Alerts No Known Allergies Immunizations Given and Recorded Vaccine Date Status Refusal Reason SARS-CoV-2 (COVID-19) mRNA BNT-162b2 vac 09/06/20 Given Medications aspirin 81 mg oral tablet 1 tablet = 81 mg, By Mouth, Daily, # 30 tablet, 1 Refills, Maintenance, 12/31/18 9:12:21 EDT, Tablet Start Date: 12/31/18 Stop Date: 03/01/19 Status: Ordered Lipitor 80 mg oral tablet 1 tablet = 80 mg, By Mouth, Daily, # 30 tablet, 1 Refills, Maintenance, Tablet, Route to Pharmacy Electronically, [id number], [facility] Start Date: 12/31/18 Status: Ordered metoprolol 25 mg oral tablet 25 mg, By Mouth, 2 times a day, # 60 tablet, Refills 0, Tot. Refills 0, Maintenance, 12/31/18 9:13:30 EDT, Route to Pharmacy Electronically, [id number], [facility] Start Date: 12/31/18 Stop Date: 01/30/19 Status: Ordered nitroglycerin 0.4 mg sublingual tablet = 0.4 mg, Sublingual, Every 5 minutes, PRN Chest Pain, not to exceed 3 doses/15 min--if pain persists, seek medical attention, # 25 tablet, 0 Refills, Soft Stop, 12/31/18 9:13:51 EDT, Tablet Start Date: 12/31/18 Status: Ordered Plavix 75 mg oral tablet 75 mg, By Mouth, Daily in AM, # 30 tablet, Refills 1, Tot. Refills 1, Maintenance, 12/31/18 9:13:16EDT, Route to Pharmacy Electronically, [id number], [facility] Start Date: 12/31/18 Stop Date: 03/01/19 Status: Ordered Vital Signs Most recent to oldest [Reference Range]: 1 Height 172 cm (09/25/22 9:06 AM) Weight 71.9 kg (09/25/22 9:06 AM) Oxygen Saturation [94-100 %] 95 % (09/25/22 9:06 AM) Pulse Rate [55-90 bpm] 75 bpm (09/25/22 9:06 AM) Body Mass Index [18.5-24.99 kg/m2] 24.3 kg/m2 (09/25/22 9:06 AM) Blood Pressure [90-138/55-84 mm Hg] 140/ 70mm Hg *H* (09/25/22 9:06 AM) Mode of Delivery (Oxygen) Room air (09/25/22 9:06 AM) Blood pressure sites Arm, left (09/25/22 9:06 AM) Weight Obtained Via Patient/family state d (09/25/22 9:06 AM) Note * Dorina Harris: PERFORM, SIGN, VERIFY Event Display: Patient Education/Instruction Authored Date: [facility] *[facility] [address] Clinical Summary Name DORY CHEUNG Age 77 Years 1945 PCP Kieran CHRISTIANSON, Urban Matthew PCP Visit Date 09/25/2022 09:00:00 Additional Instructions: Scheduled Appointments?? Future Appointments ?No Future Appointments Scheduled Follow-Up Instructions ?? Diagnosis Medications: Please continue your medications until treatment is completed or stopped by your provider. Discuss any questions related to medications with your provider. Medications to Continue with No Changes These medications were not printed or sent to your pharmacy Aspirin (aspirin 81 mg oral tablet) 1 tab(s) Oral Daily for 30 Days. Refills: 1. Next Dose: Atorvastatin (Lipitor 80 mg oral tablet) 1 tab(s) Oral Daily. Refills: 1. Next Dose: Clopidogrel (Plavix 75 mg oral tablet) 75 Milligram Oral Daily in the morning for 30 Days. Refills:1. Next Dose: Metoprolol (metoprolol 25 mg oral tablet) 25 Milligram Oral twice a day for 30 Days. Refills: 0. Next Dose: Nitroglycerin (nitroglycerin 0.4 mg sublingual tablet) 0.4 Milligram Sublingual every 5 minutes as needed Chest Pain. not to exceed 3 doses/15 min--if pain persists, seek medical attention. Refills: 0. Next Dose: Allergy Info:?? NKA Medications Given This Visit Future Orders ?No future orders Vital Signs Height 172 cm Weight 71.9 kg BMI 24.3 kg/m2 Blood Pressure 140 mm Hg/70 mm Hg Temperature Pulse Rate 75 bpm Respiratory Rate 02 Sat Mode of Delivery 95 %/Room air You can now view a summary of your hospital visit from the comfort of your home through a free online portal called [employer]. [employer] is a website that allows you to securely view your medical information including discharge summary, medications and follow-up visits. ??You can alsosend a secure electronic message to your doctor???s office to request appointments, renew medications or just ask a question. You can enroll at [email or web address] or register during your next office visit. Disclaimer:?? The information provided is of a general nature and is intended to be used in conjunction with the recommendations and advice of your health care practitioner. ??Every effort has been made to ensure that the information provided is accurate and complete at the time it is provided to you however, as your needs change, or, as new ??information becomes available, different or additional instructions may be required. If you have questions, please consult with your primary care provider or pharmacist, as appropriate. ??This information is not intended to serve as substitution for assessment and evaluation by a qualified health care provider. If you do not have a primary care provider, you may find a [facility] provider by calling [facility] at [phone]. For information about the plan of care including goals and instructions for your diagnosis, please see the patient education orders section of this document. Patient Education Materials?? The content of this educational material or handout may have been modified, supplemented, or adapted from its original content and format to support your individualized medical care. * Event Display: CT Scan Abdomen, Non- BH Authored Date: * Event Display: CT Scan Abdomen, Non- BH Authored Date: * Event Display: Cardiology Office Note, Non-BH Authored Date: * Event Display: Non BH Cardiovascular Results Authored Date: Patient Care team information Care Team Personnel Name: Kieran CHRISTIANSON, Urban Matthew Position: [facility] Physician -Physician Practices Member Role: PCP Address: Address: [address] [place] [address]- Care Team Related Persons Name: LAKSHMI MAGDALENO Address: [address] [address]
--- OUTSIDE RECORDS SUMMARY | 2024-01-18 10:17 | XMS_ITS | Continuity of Care Document ---
Author Organization [facility] Address [address] [place] [address]- Care Team Providers Care Breast Puller Name Role Phone Urban Alcaraz MD Primary Care Physician Encounter [facility] Date(s): 08/01/19 - 08/11/[address] [address]- [facility] Attending Physician: Admtr, Dion8 Admitting Physician: Admtr, Ar8 Referring Physician: Admtr, Ar8 Allergies, Adverse Reactions, Alerts Substance Reaction Severity Status NKA Active Medications aspirin 81 mg oral tablet 1 tablet = 81 mg, By Mouth, Daily, # 30 tablet, 1 Refills, Maintenance, 12/31/18 9:12:21 EDT, Tablet Start Date: 12/31/18 Stop Date: 03/01/19 Status: Ordered Lipitor 80 mg oral tablet 1 tablet = 80 mg, By Mouth, Daily, # 30 tablet, 1 Refills, Maintenance, Tablet, Route to Pharmacy Electronically, [id number], [facility] Start Date: 12/31/18 Status: Ordered metoprolol 25 mg oral tablet 25 mg, By Mouth, 2 times a day, # 60 tablet, Refills 0, Tot. Refills 0, Maintenance, 12/31/18 9:13:30 EDT, Route to Pharmacy Electronically, [id number], [facility] Start Date: 12/31/18 Stop Date: [...] Maintenance, 12/31/18 9:13:16EDT, Route to Pharmacy Electronically, [id number], [facility] Start Date: 12/31/18 Stop Date: 03/01/19 Status: Ordered
--- OUTSIDE RECORDS SUMMARY | 2024-01-18 10:17 | XMS_ITS | Continuity of Care Document ---
Author Organization [facility] Address [address] [place] [address]- Care Team Providers Care Drier Attendant Name Role Phone Urban Alcaraz MD Primary Care Physician [phone] Encounter [facility] Date(s): 07/29/19 - 08/31/[address] [address]- [facility] Attending Physician: Urban Alcaraz MD Admitting Physician: Urban Alcaraz MD Referring Physician: Urban Alcaraz MD Allergies, Adverse Reactions, Alerts Substance Reaction Severity [...] Refills, Maintenance, Tablet, Route to Pharmacy Electronically, [id number], [facility] Start Date: 12/31/18 Status: Ordered metoprolol 25 mg oral tablet 25 mg, By Mouth, 2 times a day, # 60 tablet, Refills 0, Tot. Refills 0, Maintenance, 12/31/18 9:13:30 EDT, Route to Pharmacy Electronically, [id number], [facility] Start Date: 12/31/18 Stop [...] Maintenance, 12/31/18 9:13:16EDT, Route to Pharmacy Electronically, [id number], [facility] Start Date: 12/31/18 Stop Date: 03/01/19 Status: Ordered
--- OUTSIDE RECORDS SUMMARY | 2024-01-18 10:17 | XMS_ITS | Continuity of Care Document ---
Author Organization [facility] Address [address] [place] [address]- Care Team Providers Care Checker Product Design Name Role Phone Urban Alcaraz MD Primary Care Physician [phone] Encounter [facility] Date(s): 09/23/20 - 12/23/[address] [address] Attending Physician: Urban Alcaraz MD Allergies, Adverse Reactions, Alerts Substance Reaction Severity Status NKA Active Immunizations Given and Recorded Vaccine Date Status [...] Refills, Maintenance, Tablet, Route to Pharmacy Electronically, [id number], [facility] Start Date: 12/31/18 Status: Ordered metoprolol 25 mg oral tablet 25 mg, By Mouth, 2 times a day, # 60 tablet, Refills 0, Tot. Refills 0, Maintenance, 12/31/18 9:13:30 EDT, Route to Pharmacy Electronically, [id number], [facility] Start Date: 12/31/18 Stop Date: 01/30/19 [...] Maintenance, 12/31/18 9:13:16EDT, Route to Pharmacy Electronically, [id number], [facility] Start Date: 12/31/18 Stop Date: 03/01/19 Status: Ordered
--- OUTSIDE RECORDS SUMMARY | 2024-01-18 10:17 | XMS_ITS | Continuity of Care Document ---
Author Organization [facility] Address [address] [place] [address]- Care Team Providers Care Trial Court Justice Name Role Phone Urban Alcaraz MD Primary Care Physician [phone] [place] [facility] [place] 12/10/19 - 12/11/[address] [address]- [facility] Attending Physician: Urban Alcaraz MD Allergies, Adverse [...] Refills, Maintenance, Tablet, Route to Pharmacy Electronically, [id number], [facility] Start Date: 12/31/18 Status: Ordered metoprolol 25 mg oral tablet 25 mg, By Mouth, 2 times a day, # 60 tablet, Refills 0, Tot. Refills 0, Maintenance, 12/31/18 9:13:30 EDT, Route to Pharmacy Electronically, [id number], [facility] Start Date: 12/31/18 Stop [...] Maintenance, 12/31/18 9:13:16EDT, Route to Pharmacy Electronically, [id number], [facility] Start Date: 12/31/18 Stop Date: 03/01/19 Status: Ordered
--- OUTSIDE RECORDS SUMMARY | 2024-01-18 10:17 | XMS_ITS | Continuity of Care Document ---
Author Organization [facility] Address [address] [place] [address]- Care Team Providers Care Laboratory Scientist Name Role Phone Urban Alcaraz MD Primary Care Physician [phone] En[place] [facility] [place] Date(s): 08/21/19 - 08/22/[address] [address]- [facility] Attending Physician: Urban Alcaraz MD Allergies, Adverse [...] Refills, Maintenance, Tablet, Route to Pharmacy Electronically, [id number], [facility] Start Date: 12/31/18 Status: Ordered metoprolol 25 mg oral tablet 25 mg, By Mouth, 2 times a day, # 60 tablet, Refills 0, Tot. Refills 0, Maintenance, 12/31/18 9:13:30 EDT, Route to Pharmacy Electronically, [id number], [facility] Start Date: 12/31/18 Stop Date: [...] Maintenance, 12/31/18 9:13:16EDT, Route to Pharmacy Electronically, [id number], [facility] Start Date: 12/31/18 Stop Date: 03/01/19 Status: Ordered
--- OUTSIDE RECORDS SUMMARY | 2024-01-18 10:17 | XMS_ITS | Continuity of Care Document ---
Author Organization [facility] Address [address] [place] [address]- Care Team Providers Care Health Unit Coordinator Name Role Phone Kieran CHRISTIANSON, Urban Matthew Primary Care Physician Encounter [facility] Date(s): 11/29/23 - 01/09/[address] [address]- Encounter Diagnosis Spinal instabilities, lumbar region(Final) - Discharge Disposition: A-D/C Home Attending Physician: Gallo Tavares Admitting Physician: Gallo Tavares Referring Physician: Gallo Tavares Allergies, Adverse Reactions, Alerts No Known Allergies [...] Refills, Maintenance, Tablet, Route to Pharmacy Electronically, [id number], [facility] Start Date: 12/31/18 Status: Ordered metoprolol 25 mg oral tablet 25 mg, By Mouth, 2 times a day, # 60 tablet, Refills 0, Tot. Refills 0, Maintenance, 12/31/18 9:13:30 EDT, Route to Pharmacy Electronically, [id number], [facility] Start Date: 12/31/18 Stop [...] Maintenance, 12/31/18 9:13:16EDT, Route to Pharmacy Electronically, [id number], [facility] Start Date: 12/31/18 Stop Date: 03/01/19 Status: Ordered Patient Care team information Care Team Personnel Name: Kieran CHRISTIANSON, Urban Matthew Position: S Physician - Primary Care Member Role: PCP Address: Address: [address] [place] [address]- Care Team Related Persons Name: LAKSHMI MAGDALENO Address: home [address] [place] [address]
--- OUTSIDE RECORDS SUMMARY | 2024-01-18 10:17 | XMS_ITS | Continuity of Care Document ---
Author Organization [facility] Address [address] [place] [address]- Care Team Providers Care Reduction Furnace Operator Helper Name Role Phone Kieran CHRISTIANSON, Urban Matthew Primary Care Physician Encounter [facility] Date(s): 10/02/22 - 11/01/22 [facility] [address] [place], [place] [address] Allergies, Adverse Reactions, Alerts No Known Allergies [...] Refills, Maintenance, Tablet, Route to Pharmacy Electronically, [id number], [facility] Start Date: 12/31/18 Status: Ordered metoprolol 25 mg oral tablet 25 mg, By Mouth, 2 times a day, # 60 tablet, Refills 0, Tot. Refills 0, Maintenance, 12/31/18 9:13:30 EDT, Route to Pharmacy Electronically, [id number], [facility] Start Date: 12/31/18 [...] Maintenance, 12/31/18 9:13:16EDT, Route to Pharmacy Electronically, [id number], [facility] Start Date: 12/31/18 Stop Date: 03/01/19 Status: Ordered Patient Care team information Care Team Personnel Name: Kieran CHRISTIANSON, Urban Matthew Position: [facility] Physician -Physician Practices Member Role: PCP Address: Address: [address] [place] [address]- Care Team Related Persons Name: LAKSHMI MAGDALENO Address: home [address] [place] [address], [place] [address]
--- OUTSIDE RECORDS SUMMARY | 2024-01-18 10:17 | XMS_ITS | Continuity of Care Document ---
Author Organization [facility] Address [address] [place] [address]- Care Team Providers Care It Training Specialist Name Role Phone Kieran CHRISTIANSON, Urban Matthew Primary Care Physician Encounter [facility] Date(s): 09/25/22 - 10/25/22 [facility] [address] [place], [place] [address] Attending Physician: Nannette Reyna Admitting Physician: AdmNannette padilla Referring Physician: AdmtrNannette Allergies, Adverse Reactions, Alerts No Known Allergies [...] Refills, Maintenance, Tablet, Route to Pharmacy Electronically, [id number], [facility] Start Date: 12/31/18 Status: Ordered metoprolol 25 mg oral tablet 25 mg, By Mouth, 2 times a day, # 60 tablet, Refills 0, Tot. Refills 0, Maintenance, 12/31/18 9:13:30 EDT, Route to Pharmacy Electronically, [id number], [facility] Start Date: 12/31/18 Stop Date: [...] Maintenance, 12/31/18 9:13:16EDT, Route to Pharmacy Electronically, [id number], [facility] Start Date: 12/31/18 Stop Date: 03/01/19 Status: Ordered Patient Care team information Care Team Personnel Name: Kieran CHRISTIANSON, Urban Matthew Position: [facility] Physician -Physician Practices Member Role: PCP Address: Address: [address] [place] [address]- Care Team Related Persons Name: LAKSHMI MAGDALENO Address: home [address] [place] [address]
--- OUTSIDE RECORDS SUMMARY | 2024-01-18 10:17 | XMS_ITS | Continuity of Care Document ---
Author Organization [facility] ter Address [address] [place] [id number]- Care Team Providers Care Passenger Service Manager Name Role Phone Urban Alcaraz MD Primary Care Physician Encounter [facility] [place] Date(s): 06/22/20 - 06/23/[address] [address] Attending Physician: Urban Alcaraz MD [...] Refills, Maintenance, Tablet, Route to Pharmacy Electronically, [id number], [facility] Start Date: 12/31/18 Status: Ordered metoprolol 25 mg oral tablet 25 mg, By Mouth, 2 times a day, # 60 tablet, Refills 0, Tot. Refills 0, Maintenance, 12/31/18 9:13:30 EDT, Route to Pharmacy Electronically, [id number], [facility] Start Date: 12/31/18 [...] Maintenance, 12/31/18 9:13:16EDT, Route to Pharmacy Electronically, [id number], [facility] Start Date: 12/31/18 Stop Date: 03/01/19 Status: Ordered
--- OUTSIDE RECORDS SUMMARY | 2024-01-18 10:17 | XMS_ITS | Continuity of Care Document ---
Author Organization [facility] ter Address [address] [place] [address]- Care Team Providers Care Parimutuel Clerk Name Role Phone Urban Alcaraz MD Primary Care Physician Encounter [facility] [place] Date(s): 07/09/19 - 12/11/[address] [address]- [facility] Attending Physician: Urban Alcaraz MD [...] Refills, Maintenance, Tablet, Route to Pharmacy Electronically, [id number], [facility] Start Date: 12/31/18 Status: Ordered metoprolol 25 mg oral tablet 25 mg, By Mouth, 2 times a day, # 60 tablet, Refills 0, Tot. Refills 0, Maintenance, 12/31/18 9:13:30 EDT, Route to Pharmacy Electronically, [id number], [facility] Start Date: [...] Maintenance, 12/31/18 9:13:16EDT, Route to Pharmacy Electronically, [id number], [facility] Start Date: 12/31/18 Stop Date: 03/01/19 Status: Ordered
--- OUTSIDE RECORDS SUMMARY | 2024-01-18 10:17 | XMS_ITS | Continuity of Care Document ---
Author Organization [facility] Address [address] [place] [id number]- Care Team Providers Care Nerve Specialist Name Role Phone Kieran CHRISTIANSON, Urban Matthew Primary Care Physician Encounter [facility] Date(s): 12/03/23 - 01/09/[address] [address]- Encounter Diagnosis Procedure and treatment not carried out, unspecified reason(Final) - Discharge Disposition: A-D/C Home Attending Physician: Urban Alcaraz MD Admitting Physician: Urban Alcaraz MD Referring Physician: Urban Alcaraz MD Allergies, Adverse Reactions, Alerts No Known [...] Refills, Maintenance, Tablet, Route to Pharmacy Electronically, [id number], [facility] Start Date: 12/31/18 Status: Ordered metoprolol 25 mg oral tablet 25 mg, By Mouth, 2 times a day, # 60 tablet, Refills 0, Tot. Refills 0, Maintenance, 12/31/18 9:13:30 EDT, Route to Pharmacy Electronically, [id number], [facility] Start Date: 12/31/18 [...] Maintenance, 12/31/18 9:13:16EDT, Route to Pharmacy Electronically, [id number], [facility] Start Date: 12/31/18 Stop Date: 03/01/19 Status: Ordered Patient Care team information Care Team Personnel Name: Kieran CHRISTIANSON, Urban Matthew Position: [facility] Physician - Primary Care Member Role: PCP Address: Address: [address] [place] [address]- Care Team Related Persons Name: LAKSHMI MAGDALENO Address: home [address] [facility] [place] [address]
--- OUTSIDE RECORDS SUMMARY | 2024-01-18 10:17 | XMS_ITS | Continuity of Care Document ---
Author Organization [facility] ter Address [address] [place] [address]- Care Team Providers Care Dry Curer Name Role Phone Urban Alcaraz MD Primary Care Physician Encounter [facility] [place] Date(s): 07/29/19 - 07/30/[address] [address]- [facility] Attending Physician: Urban Alcaraz MD Allergies, Adverse [...] Refills, Maintenance, Tablet, Route to Pharmacy Electronically, [id number], [facility] Start Date: 12/31/18 Status: Ordered metoprolol 25 mg oral tablet 25 mg, By Mouth, 2 times a day, # 60 tablet, Refills 0, Tot. Refills 0, Maintenance, 12/31/18 9:13:30 EDT, Route to Pharmacy Electronically, [id number], [facility] Start Date: 12/31/18 Stop [...] Maintenance, 12/31/18 9:13:16EDT, Route to Pharmacy Electronically, [id number], [facility] Start Date: 12/31/18 Stop Date: 03/01/19 Status: Ordered
--- NOTE | 2024-01-18 11:48 | ECG_ITS ---
Test Reason : FALL Blood Pressure : / mmHG Vent. Rate : 086 BPM Atrial Rate : 086 BPM P-R Int : 112 ms QRS Dur : 088 ms QT Int : 354 ms P-R-T Axes : 023 -17 -13 degrees QTc Int : 423 ms Normal sinus rhythm Minimal voltage criteria for LVH, may be normal variant ( R in aVL ) Borderline ECG When compared with ECG of 19-NOV-2023 12:47, No significant change was found Referred By: Filipe Calloway Electronically Signed By:NEHA SHERMAN
[2024-01-18 12:00] VITALS: BP 149/72; PULSE 84; RESP 14; TEMP 36.8; O2SAT 96
--- NOTE | 2024-01-18 12:20 | ED_ITS ---
HPI - General Adult General Chief complaint: Fall Stated complaint: MECHANICAL FALL Time Seen by Provider: 01/18/24 12:02 History of Present Illness ED Provider: Dr. Lipscomb HPI narrative: 78 y/o M patient; PMH HTN, CAD s/p stent; who presents from home with report of fall down approx 1 step with landing on right upper extremity. The patient states he has chronic difficulties with pain in his bilateral lower extremities. He states he received an IM cortisone shot in his left hip several months ago. He is currently being evaluated for his right hip pain - he has recently had unremarkable XRs of his right pelvis. The patient is in physical therapy for his lower extremities. He otherwise denies: head strike, LOC, nausea/vomiting, diarrhea, chest pain, SOB, cough/congestion, headache, syncope. Tetanus is not up to date. Related Data Home Medications ?Medication ?Instructions ?Recorded ?Confirmed meloxicam 7.5 mg tablet 7.5 mg PO DAILY 11/13/22 11/15/23 Previous Rx's ?Medication ?Instructions ?Recorded atorvastatin 80 mg tablet 80 mg PO DAILY #90 tabs 09/25/23 acetaminophen 500 mg tablet 1,000 mg (2 x 500 mg) PO Q8H PRN 10/04/23 (Tylenol Extra Strength) pain #30 tabs metoprolol tartrate 25 mg tablet 25 mg PO BID #180 tabs 10/12/23 aspirin 81 mg tablet,delayed 81 mg PO DAILY #90 tabs 10/23/23 release Allergies Allergy/AdvReac Type Severity Reaction Status Date / Time No Known Allergies Allergy Verified 01/18/24 09:58 [No Known Allergies*] Review of Systems 2 Review of Systems: Yes all other systems are reviewed and are negative Neurologic: Denies Abnormal speech present and Denies Sensory deficit (Neuro) [facility] Past Medical History Attestation statement: The following information was validated with the patient. Source: old records reviewed Medical History Essential hypertension NSTEMI (non-ST elevated myocardial infarction) Atherosclerotic cardiovascular disease Surgical History Stented coronary artery History of tonsillectomy History of cardiac catheterization (~12/30/18) Family History Family History Father Cardiovascular disease Mother Cardiovascular disease Diabetes Social History Social History Alcohol intake: current Alcohol intake frequency: 0-2 drinks per day Alcohol type: wine Patient Tobacco Use Status: Never used Tobacco Advance Directives: No Advance Directives Information Provided: Yes Physical Exam ED Vital Signs: Vital Signs - 24 hr 01/18/24 09:52 Temperature 98.0 F Pulse Rate 81 Respiratory Rate 15 Blood Pressure 150/77 H Pulse Oximetry 98 Oxygen Delivery Method Room Air BMI result Body Mass Index 26.8 Patient is afebrile, mildly hypertensive. Const General: cooperative and no acute distress Orientation/consciousness: patient oriented x3 HENMT Head: Yes normal to inspection and Yes atraumatic Eyes General: appearance normal, both eyes and all related structures Pupils: Equal, round and reactive pupils present EOM: EOMs intact bilaterally Neck Neck: Yes normal visual inspection, Yes full ROM, Yes supple and No tender Chest Chest palpation & inspection: normal inspection of the chest and normal palpation of entire chest wall Resp Effort & Inspection: normal respiratory effort, able to speak in complete sentences, no cough and no respiratory distress Auscultation: clear to auscultation bilaterally Cardio Rate: regular rate Rhythm: regular rhythm Peripheral pulses: Peripheral pulses 2+ throughout GI Inspection: Yes normal to inspection, No Abdominal wall edema and No distended Palpation (GI): Soft to palpation, not firm, nontender, no guarding and not rigid Auscultation: normal bowel sounds Back/Spine/Pelvis Back: No back tenderness Neuro Other: Gait intact with cane General: patient oriented x3 Cranial nerves: Yes Equal, round and reactive pupils present Cognition (Neuro): normal cognition Speech: No Abnormal speech present Motor exam (neuro): 5/5 motor strength present throughout Sensory Exam: No Sensory deficit (Neuro) Extrem Other: Small right elbow skin tear FROM right lower extremity. Pain with range but intact. NVI. Course Course Course Narrative: Patient is afebrile and hemodynamically stable. Reviewed triage orders of CT Head/Neck, XR Right Elbow, XR Pelvis, laboratory studies. Updated tetanus. Wrapped slight right elbow skin tear. XR Pelvis unremarkable. XR right elbow with possible occult fx. However patient has NO pain over elbow. He has full range of motion in elbow. 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 Discussed with patient that this is reasonable but if he develops pain he should return to the emergency department or follow up with his PCP for a sling placement. Suspect fall 2/2 to overuse following recent end to physical therapy. Patient will re-establish care with physical therapy next week. CT Head and Cervical Spine without acute abnormalities. Patient is able to ambulate with cane. Plan: Discharge to home with PCP follow up Return precautions given Medications Administered Discontinued Medications Generic Name Dose Route Start Last Admin Trade Name Freq PRN Reason Stop Dose Admin Diphtheria/Tetanus/Acell Pertussis 0.5 ml 01/18/24 13:20 01/18/24 13:49 Diphth,Pertus(Acell),Tet Adult 0.5 Ml Syringe IM 01/18/24 13:21 0.5 ml .ONCE ONE Administration Medical Decision Making Lab Data 01/18/24 13:08 01/18/24 13:08 Labs: Lab Results 01/18/24 Range/Units 13:08 WBC 11.1 H (4.8-10.8) X10*3/uL RBC 4.33 L (4.60-5.80) X10*6/uL Hgb 14.4 (14.0-18.0) g/dl Hct 43.4 (42.0-52.0) % MCV 100.2 H (80.0-98.0) fL MCH 33.3 H (27.0-33.0) pg MCHC 33.2 (31.0-36.0) g/dl RDW 12.7 (11.0-16.0) % Plt Count 196 (160-400) X10*3/uL MPV 10.5 (9.4-12.4) fL Immature Gran % (Auto) 0.5 H (0.0-0.4) % Neut % (Auto) 80.8 H (45-73) % Lymph % (Auto) 11.0 L (20-40) % Parker % (Auto) 6.7 (2-11) % Eos % (Auto) 0.7 (0-4) % Baso % (Auto) 0.3 (0-2) % Lymph # (Auto) 1.2 (1.2-4.9) X10*3/uL Parker # (Auto) 0.7 (0.1-1.2) X10*3/uL Eos # (Auto) 0.1 (0.0-0.4) X10*3/uL Baso # (Auto) 0.0 (0.0-0.2) X10*3/uL Abs Immat Gran (auto) 0.05 H (0.00-0.03) X10*3/uL Absolute Neuts (auto) 8.9 H (2.0-8.3) x10*3/uL Absolute Nucleated RBC 0.000 (0.0-0.012) X10*3/uL Nucleated RBC % (auto) 0.0 (0.0-0.2) /100WBC PT 12.8 (11.1-13.3) SEC INR 1.1 (0.9-1.1) Sodium 140 (135-145) mmol/L Potassium 4.6 (3.3-5.1) mmol/L Chloride 109 H (96-108) mmol/L Carbon Dioxide 23 (22-29) mmol/L Anion Gap 13 (12-20) BUN 14 (9-16) mg/dL Creatinine 0.67 (0.5-1.4) mg/dL Estim Creat Clear Calc 76.4 Estimated GFR > 60 Random Glucose 86 (60-115) mg/dL Calcium 9.8 D (8.4-10.2) mg/dL Magnesium 2.0 (1.6-2.6) mg/dL Total Bilirubin 0.8 (0.0-1.0) mg/dL AST 24 (5-37) U/L ALT 15 (0-40) U/L Alkaline Phosphatase 140 H (39-117) U/L Troponin I High Sens 3.8 (<3.5-35.0) ng/L Total Protein 7.2 (6.5-8.0) g/dL Albumin 3.9 (3.5-5.0) g/dL Radiology Impression Discussion of test interpretation with radiology: I have reviewed the radiologist's reading. Radiologist Impression: EXAMINATION: XR BILATERAL HIPS WITH AP PELVIS CLINICAL INFORMATION: Status post fall with pain in the right more than left hips COMPARISON: None available. TECHNIQUE: AP view of the pelvis and single views of each hip were obtained. FINDINGS: No fracture. Hip joint spaces are maintained. Alignment is anatomic. Sacroiliac joints and pubic symphysis are normal. No abnormal soft tissue calcifications. XR/XR hip BI w PEL1V IMPRESSION: Normal pelvis and hips. EXAMINATION: XR ELBOW, RIGHT CLINICAL INFORMATION: Pain in the right elbow following fall COMPARISON: None available. TECHNIQUE: AP, lateral, and oblique views of the right elbow. FINDINGS: There is no obvious acute fracture seen. There are small posterior and anterior joint effusion suggestive for occult fracture. There is spurring causing medial and lateral epicondyles suggestive for chronic epicondylitis XR/XR elbow RT 2V IMPRESSION: Possible occult fracture of of the elbow with small joint effusion and chronic epicondylitis EXAMINATION: CT HEAD WITHOUT CONTRAST CT CERVICAL SPINE WITHOUT CONTRAST CLINICAL INFORMATION: Status post fall with head and neck trauma COMPARISON: None TECHNIQUE: CT of the head and cervical spine were performed without intravenous contrast. Multiplanar reformats were rendered and reviewed. This CT examination was performed using dose optimization techniques as appropriate, variously including the following: *Automated exposure control *Adjustment of mA and/or kV according to patient size (this includes techniques or standardized protocols for targeted exams where dose is matched to indication/reason for exam; i.e. extremities or head) *Use of iterative reconstruction technique DLP: 714 mGy-cm for the head and 314 mGy-cm of the cervical spine FINDINGS: CT head: No intracranial hemorrhage, large infarction, or mass lesion is seen. No extra-axial collection is appreciated. The ventricles are normal in size and configuration for age without evidence of hydrocephalus. The visualized paranasal sinuses and mastoid air cells are clear. There is small cephalohematoma along the right parietal skull without the association with fractures CT cervical spine: There is straightening of cervical lordosis with multilevel degenerative changes including narrowing of C5-C6, C6-C7 intervertebral 1 anterior listhesis of C5 over C6. There is mild compression deformity of T3 vertebral body only visualized on the lateral view. The craniocervical junction is normal.. The paraspinal soft tissues are within normal limits. The partially imaged lung apices are clear. CT/CT cervical spine wo IV con IMPRESSION: CT HEAD: 1. No acute intracranial finding. 2. Small cephalohematoma along the right parietal skull. CT CERVICAL SPINE: 1. No cervical spine fracture or traumatic malalignment identified. 2. Straightening of cervical lordosis with multilevel degenerative changes and grade 1 anterolisthesis of C5 over C6. 3. Mild compression deformity of T3 vertebral body only visualized on the lateral view. Discharge Plan Discharge Clinical Impression: Fall, Occult fracture of right elbow Patient Disposition: Home, Self-Care Instructions: Fall Prevention (ED) Additional Instructions: As we discussed, you were seen today after a fall. Your CT head and neck did not show any broken bones. Your pelvic XR did not show any broken bones. Your elbow XR showed a possible small broken bone on the inside of your elbow. However as you are not having pain we discussed holding on the sling due to it limiting your mobility. Recommend you continue your physical therapy sessions. Prescriptions: No Action atorvastatin 80 mg tablet 80 mg PO DAILY Qty: 90 3RF metoprolol tartrate 25 mg tablet 25 mg PO BID Qty: 180 3RF aspirin 81 mg tablet,delayed release (DR/EC) 81 mg PO DAILY Qty: 90 0RF Rx Instructions: Keep your appt on 11/15/23 at 2:00 pm acetaminophen [Tylenol Extra Strength] 500 mg tablet 1,000 mg PO Q8H PRN (Reason: pain) Qty: 30 0RF meloxicam 7.5 mg tablet 7.5 mg PO DAILY Print Language: Spanish
[2024-01-18 13:14] LABS: MANUAL DIFF FLAG NO
[2024-01-18 13:15] LABS: Basophils Percent Auto 0.3 % (0-2); Eosinophils Absolute Auto 0.1 X10*3/uL (0.0-0.4); Eosinophils Percent Auto 0.7 % (0-4); Hematocrit 43.4 % (42.0-52.0); Hemoglobin 14.4 g/dl (14.0-18.0); Imm Gran Abs Auto 0.05 X10*3/uL (0.00-0.03); Imm Gran Pct Auto 0.5 % (0.0-0.4); Lymphocytes Absolute Auto 1.2 X10*3/uL (1.2-4.9); Mean Corpuscular HGB Conc 33.2 g/dl (31.0-36.0); Mean Corpuscular Hemoglobin 33.3 pg (27.0-33.0); Mean Corpuscular Volume 100.2 fL (80.0-98.0); Mean Platelet Volume 10.5 fL (9.4-12.4); Monocytes Absolute Auto 0.7 X10*3/uL (0.1-1.2); Monocytes Percent Auto 6.7 % (2-11); Neutrophils Absolute Auto 8.9 x10*3/uL (2.0-8.3); Neutrophils Percent Auto 80.8 % (45-73); Platelet Count 196 X10*3/uL (160-400); Red Blood Count 4.33 X10*6/uL (4.60-5.80); Red Cell Distribution Width 12.7 % (11.0-16.0); White Blood Count 11.1 X10*3/uL (4.8-10.8)
[2024-01-18 13:24] LABS: INTERNATIONAL NORM RATIO 1.1 (0.9-1.1); Prothrombin Time 12.8 SEC (11.1-13.3)
[2024-01-18 13:33] LABS: Alanine Aminotransferase 15 U/L (0-40); Albumin Level 3.9 g/dL (3.5-5.0); Alkaline Phosphatase 140 U/L (39-117); Anion Gap 13 (12-20); Aspartate Amino Transferase 24 U/L (5-37); Bilirubin Total 0.8 mg/dL (0.0-1.0); Blood Urea Nitrogen 14 mg/dL (9-16); Calcium 9.8 mg/dL (8.4-10.2); Carbon Dioxide 23 mmol/L (22-29); Chloride 109 mmol/L (96-108); Creatinine Clr Calc Pharmacy 76.4; Estimated Glomerular Filt Rate > 60; Glucose Random 86 mg/dL (60-115); Potassium 4.6 mmol/L (3.3-5.1); Sodium 140 mmol/L (135-145); Total Protein 7.2 g/dL (6.5-8.0)
[2024-01-18 13:40] LABS: Troponin-I High Sensitivity 3.8 ng/L (<3.5-35.0)
[2024-01-18] MEDS: Diphth,Pertus(ACell),Tet Adult 0.5 ML SYRINGE IM (13:49)
[2024-01-18 14:42] VITALS: BP 149/72; PULSE 82; RESP 15; TEMP 36.7; O2SAT 98
== END 2024-01-18 14:50 | disposition home or self-care (01) ==
PROVIDERS: Physician Assistant; Emergency Provider Emergency Medicine; PCP Internal Medicine
DX: S42.401A Unspecified fracture of lower end of right humerus, initial encounter for closed fracture (principal); S51.011A Laceration without foreign body of right elbow, initial encounter; W10.9XXA Fall (on) (from) unspecified stairs and steps, initial encounter; I10 Essential (primary) hypertension; Y93.9 Activity, unspecified; Y92.9 Unspecified place or not applicable; Y99.9 Unspecified external cause status; Z23 Encounter for immunization
CPT/HCPCS: 36415; 70450; 72125; 73070; 73521; 80053; 83735; 84484; 85025; 85610; 90471; 90715; 93005; 99284

== ENCOUNTER → 2024-01-18 11:48 | Outpatient (BNV) | payer MEDICARE, SELFPAY | PROVIDERS: Emergency Provider Emergency Medicine; PCP Internal Medicine; Visit Provider Internal Medicine | DX: R55 Syncope and collapse (principal) | CPT/HCPCS: 93010 ==

== ENCOUNTER 2024-11-20 12:14 | Outpatient (AMB) | payer MEDICARE, MEDICAID, SELFPAY ==
[2024-11-20 12:34] VITALS: BP 132/70; PULSE 84; BMI 25.7
--- NOTE | 2024-11-20 12:34 | MHC.OFFVIS ---
Vital Signs 11/20/24 12:34 Height 5 ft 5 in Weight 154 lb 5.177 oz BMI 25.7 BP 132/70 Blood Pressure Location Lt brachial Position Sitting Pulse 84 Pulse Source Pulse Oximeter Intake Visit Reasons: 1 yr follow up Allergies No Known Allergies [No Known Allergies*] Allergy (Verified 01/18/24 09:58) Medication List - Last Reconciled 11/20/24 by Victoriano Lee MD acetaminophen (Tylenol Extra Strength) 1,000 mg (2 x 500 mg) PO Q8H PRN aspirin 81 mg PO DAILY atorvastatin 80 mg PO DAILY metoprolol tartrate 25 mg PO BID HPI Comments Details: Nain returns for follow-up regarding coronary disease. In 2019, he was admitted for chest pain and diagnosed as NSTEMI. Cardiac catheterization performed with stenting of right coronary artery. Overall, feeling good. No cardiac complaints. It seems that he tripped and fell down and hurt his hand which has some bruising but otherwise no specific cardiac issues. [facility] Medical History Essential hypertension NSTEMI (non-ST elevated myocardial infarction) Atherosclerotic cardiovascular disease Surgical History Stented coronary artery History of tonsillectomy History of cardiac catheterization (~12/30/18) Family History Father Cardiovascular disease Mother Cardiovascular disease Diabetes Social History Alcohol intake: current Alcohol intake frequency: 0-2 drinks per day Alcohol type: wine Patient Tobacco Use Status: Never used Tobacco Review of Systems Const Denies weakness ENT Denies dizziness Card Denies chest pain, Denies chest pain with activity, Denies syncope, Denies rapid heart rate, Denies pedal edema, Denies edema, Denies leg edema, Denies lightheadedness, Denies palpitations, Denies dyspnea, Denies dyspnea on exertion and Denies orthopnea Resp Denies cough, Denies dyspnea and Denies dyspnea on exertion GI Denies hematochezia and Denies change in stool character Musc Denies abnormal gait, Denies muscle cramps, Denies muscle weakness, Denies numbness, Denies radiating pain into limb and Denies tingling Neuro Denies abnormal gait, Denies dizziness, Denies syncope, Denies numbness, Denies tingling and Denies weakness Endo Denies palpitations Physical Exam Vital Signs: Last Vital Signs Pulse 84 11/20/24 12:34 BP 132/70 11/20/24 12:34 BMI result Body Mass Index 25.7 Const General: comfortable and no acute distress Orientation/consciousness: patient oriented x3 HEENT Other: Unremarkable Head: Yes normal to inspection Neck Neck: Yes normal visual inspection Chest Chest palpation & inspection: normal inspection of the chest Resp Auscultation: clear to auscultation bilaterally Cardio Palpation: normal PMI Heart sounds: S1 normal heart sound present, S2 normal heart sound present, no gallops, no murmurs and no rubs GI Palpation (GI): Soft to palpation Back/Spine/Pelvis Other: unremarkable Skin General skin exam: no rashes or lesions noted Neuro General: patient oriented x3 Extrem General: Yes normal to inspection Psych Mental Status: mental status grossly normal Assessment & Plan Assessment & Plan (1) Atherosclerotic cardiovascular disease: Code(s): I25.10 - Atherosclerotic heart disease of sun'aq coronary artery without angina pectoris Category: Medical (2) Stented coronary artery: Code(s): Z95.5 - Presence of coronary angioplasty implant and graft Category: Surgical (3) Essential hypertension: Code(s): I10 - Essential (primary) hypertension Category: Medical Plan s/p distal RCA drug-eluting stent from 2019. He also had moderate disease in the LAD at that time. Last echocardiogram with LVEF 52%; mild hypokinesis of the basal inferior wall, but otherwise unremarkable. Overall, stable coronary disease. He remains on medications including aspirin, beta-blockers and high-dose statins. LDL cholesterol 45 mg/dL. Triglycerides 73 mg/dL. We will follow up in one year. In the interim, he will call with concerns. Patient Instructions: - Use Motrin for pain only occasionally due to current medications. - Keep using aspirin, metoprolol, and atorvastatin as prescribed. - Remove or avoid tripping hazards at home, like rugs, to prevent falls. - Monitor the condition, and if your finger does not get better, follow up with your healthcare provider. Coding Level of Care Code Est Pt Level 3 (24139) Complex EM visit Add On G2211 Diagnoses Atherosclerotic cardiovascular disease I25.10 Stented coronary artery Z95.5 Essential hypertension I10
--- OUTSIDE RECORDS SUMMARY | 2024-11-20 13:36 | XMS_ITS ---
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 Name Role Phone Kieran CHRISTIANSON, Urban Primary Care Provider Mando Quezada Unavailable [phone] Allergies No Known Allergies REASON FOR VISIT Noncovered Nailcare, Noncovered Callus Care, pcp 02/2024 Medications Medication SIG (Take, Route, Frequency, Duration) Notes Start Date End Date Status Metoprolol Tartrate 25 MG 1 tablet with food Orally Twice a day Active Pain Relief 8 Hour A ctive Atorvastatin Calcium 80 MG 1 tablet Oral ly Once a day Active Meloxicam 7.5 MG 1 tablet Orally Once a day Active Gabapentin 100 MG 1 capsule at bedtime Orally Once a day Active Social History Tobacco Use: Social History Observation Description Date Details (start date - stop date) Never Smoker NA - NA Tobacco use other than smoking: Question Answer Notes Are you an other tobacco user? No Tobacco Control (Standard) Question Answer Notes Tobacco use: Nonsmoker Additional Findings: Tobacco non-user Current no nsmoker AUDIT-C (Standard) Question Answer Notes Did you have a drink contain ing alcohol in the past year? Yes How often did you have six o r more drinks on one occasion in the past year? Never (0 point) How many drinks did you have on a typical day when you were drinking in the past year? 1 or 2 drinks (0 point) How often did you have a dri nk containing alcohol in the past year? 2 to 4 times a month (2 points) Points 2 Interpretation Negative Vital Signs Height 5ft 6in in 07/22/2024 Weight 160 lbs 07/22/2024 BMI 25.82 kg/m2 07/22/2024 Blood pressure systolic 103 mm Hg 07/22/19 25 Blood pressure diastolic 63 mm Hg 025 Procedures Procedure Date Ordered Date Performed Result Body Sit e 24247-ZTTJ SKIN LESION 07/22/2024 N/A U2335-HUCBYZLL DYSTROPHIC NAILS ANY # 07/22/2024 N/A Encounters [facility]counter [facility] [address] 07/22/[facility]24 Mando Buchanan Nail dystrophy L60.3 and Keratoma L57.0 Assessments Encounter Date Diagnosis (ICD Code) Assessment Notes Treatment Notes Treatment Clinical Notes Section Notes 07/22/2024 Nail dystrophy (ICD-10 - L60.3) 07/22/2024 Keratoma (ICD-10 - L57.0) Plan Of Treatment Pending Test Test Name Order Date 21547-RDAT SKIN LESION 07/22/2024 E3077-SCECNKWG DYSTROPHIC NAILS ANY # Next Appt Details Follow Up: prn, Reason: Provider Name:Joi Quintanilla chiquis, 12/05/2024 12:45:00 PM, [address] [facility], [address], [place], [address], Procedure Notes * Category Sub-Category Detail Notes Keratoma Treatment Parring or Cutting o f Benign Hyperkeratotic Lesion(s) 1105-GY Self Pay Non-Covered Callus care- sub 3rd MTH Left napplication of aperature pad left $0 Nail Reduction Nail Reduction O0319-NT Trimmin g of noncovered dystrophic nails, TA, T1, T2, T3, T4, T5, T6, T7, T8, T9, - $60 Progress Notes * Nain VIZCAINODOB:1945 (79 yo M)Acc No.[id number]:07/22/2024 Progress Note Patient:?Nain VIZCAINO Provider:?Mando Buchanan D.P.M. :1945???Age:79 Y???Sex:Male Justin e:07/22/2024 Address:[address] [place] [address], [place] [id number] Pcp:Urban Alcaraz MD Subjective: * Chief Complaints: * ???Noncovered NailcareNoncov jomar Bermudez [facility] 02/2024 * ROS:?General/Constitutional:?Nausea?denies.?Vomiting?denies.?Hunger Thirst?denies.?Loss appetite?denies.?Chills?denies.?Fatigue?denies.?Fever?denies.?Night Sweats?denies.?Unexplained weight loss?denies.?Unexplained weight gain?denies.?HEENTM:?Dentures?denies.?Dizziness?denies.?Glasses/contacts?admits.?Retinopathy?de nies.?Blurred/double vision?denies.?TMJ?denies.?Discharge/drainage?denies.?Implants?denies.?Sore throat?denies.?Dental implants?denies.?Hard of hearing ?denies.?Difficulty chewing/swallowing/speaking?denies.?Nose bleeds?denies.?Sore mouth?denies.?Respiratory:?On Oxygen?denies.?Pneumonia/pleurisy?denies.?Bronchitis?denies.?Emphysema?denies.?C oughing?denies.?Cough blood?denies.?Shortness of breath?denies.?Wheezing?denies.?Cardiovascular:?Pacemaker?denies.?MVP?denies.?WPW?denies.?CHF?denies.?Heart attack?admits.?Septal defect?denies.?Rapid beat?denies.?Chest pain ?denies.?Atrial Fib.?denies.?Murmur/Palpitations?denies.?Gastrointestinal:?Hemorrhoids?denies.?Stomach/Abdominal pain?denies.?Dark blood stool?denies.?Irritable bowel ?denies.?Constipation?denies.?Diarrhea?denies.?Hematology:?Swelling?denies.?Clots?denies.?Varicose Veins?denies.?Bruising?denies.?Bleeding problem?denies.?Genitourinary:?Blood urine?denies.?Frequent/Painfu/urination/bladder control?denies.?Kidney stones?denies.?Infection (UTI)?denies.?Nephropathy?denies.?sex trans dis (STD)?denies.?Prostate?denies.?Musculoskeletal:?Hammertoes?denies.?Bunions?denies.?Back Pain?admits.?Muscle Cramps/ Resting?denies.?Muscle cramps / walking?denies.?Generalized aches and pains?admits.?Weakness?denies.?Integ.:?Daley?denies.?Scars?denies.?Corns/calluses?admits.?Ingrown nails?denies.?Painful nails?admits.?Open Sores?denies.?Rashes?denies.?Neurologic:?Difficulty sleeping?denies.?Brain disorder?denies.?Numbness?denies.?Balance trouble?admits.?Confusion?denies.?Fainting/blackouts?denies.?Tingling?denies.?Tr emors?denies.? * Medical History:? * Surgical History:?Heart sten t 11/2018 * Hospitalization/Major Diagno stic Procedure:?Denies Past Hospitalization * Family History:?Mother: dece ased, diagnosed with Diabetic - NIDDM.?Father: , diagnosed with Unspecified heart disease.? * Social History:?Tobacco Use:?Tobacco use other than smoking?Are you an other tobacco user??No ?Tobacco Control (Standard)?Tobacco use:?Nonsmoker ?Additional Findings: Tobacco non-user?Current nonsmoker ???Drugs/Alcohol:?Drugs?Have you used drugs other than those for medical reasons in the past 12 months??No ???Miscellaneous:?Caffeine: yes. ?Marital status: . ???Drug/Alcohol:?AUDIT-C (Standard)?Did you have a drink containing alcohol in the past year??Yes ?How often did you have six or more drinks on one occasion in the past year??Never (0 point) ?How many drinks did you have on a typical day when you were drinking in the past year??1 or 2 drinks (0 point) ?How often did you have a drink containing alcohol in the past year??2 to 4 times a month (2 points) ?Points?2 ?Interpretation?Negative * Medications:?TakingGabapenti n 100 MG Capsule 1 capsule at bedtime Orally Once a day Meloxicam 7.5 MG Tablet 1 tablet Orally Once a day Pain Relief 8 Hour Atorvastatin Calcium 80 MG Tablet 1 tablet Orally Once a day Metoprolol Tartrate 25 MG Tablet 1 tablet with food Orally Twice a day Medication List reviewed and reconciled with the patientTaking Gabapentin 100 MG Capsule 1 capsule at bedtime Orally Once a day Taking Meloxicam 7.5 MG Tablet 1 tablet Orally Once a day Taking Pain Relief 8 Hour Taking Atorvastatin Calcium 80 MG Tablet 1 tablet Orally Once a day Taking Metoprolol Tartrate 25 MG Tablet 1 tablet with food Orally Twice a day Medication List reviewed and reconciled with the patient * Allergies:?N.K.D.A.yes[Aller gies Verified] Objective: * Vitals:?Ht: 5ft 6in, Wt: 160 , BMI: 25.82, Shoe size: 8.5, BP: 103/63 mm Hg, Ht- cm: 167.64 cm, Wt-k.57 kg. * Examination: ???General Examination: ?GENERAL APPEARANCE:?Reveals a pleasant, alert, well-nourished, well- developed, well hydrated individual, who demonstrates proper attention to hygiene/body habitus, and is in no acute distress, Pt serves as own?historian for office visit today.?ORIENTED:?person, place, and time.?Neurological: ?SENSORY:?Neurological exam reveals intact sensorium, pain sensation normal, vibration sensation intact, pinprick sensation is normal in the lower extremities, Pt denies, anesthesia, burning, paresthesia, tingling, B/L.?DEEP TENDON REFLEXES:?Achilles, 2/4, B/L.?Vascular: ?DP PULSES (B):?3/4, B/L.?PT PULSES (B):?3/4, B/L.?CAPILLARY FILL TIME:?immediate, all digits, B/L.?TROPHIC CONDITION-TEXTURE/ELASTICITY/TURGOR/HAIR GROWTH (B):?normal, B/L.?TEMPERTURE GRADIENT (C):?warm to cool, proximal to distal, B/L.?PIGMENTATION:?normal, B/L.?EDEMA (C):?absent, B/L.?Dermatologic: ?SKIN FINDINGS:?Skin exam reveals normal texture, elasticity, and turgor. There are no masses. The interspaces are clear , Skin exam reveals Keratotic lesion(s) located sub 4th MTH left.?Orthopedic: ?MUSCLE STRENGTH:?5/5 all groups in a symmetrical fashion , B/L.?Nails: ?NAILS are:?Elongated, overgrown, dystrophic, , TA, T1, T2, T3, T4, T5, T6, T7, T8, T9.? 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 Plan: * Treatment: 2.?Keratoma?Procedure: 04175-NRJX SKIN LESION * Procedures:?Keratoma Treatment:?Parring or Cutting of Benign Hyperkeratotic Lesion(s)?1105-GY Self Pay Non-Covered Callus care- sub 3rd MTH Left napplication of aperature pad left $0.?Nail Reduction:?Nail Reduction?A0109-[id number] Trimming of noncovered dystrophic nails, TA, T1, T2, T3, T4, T5, T6, T7, T8, T9, - $60.? * Procedure Codes:?G0127 HEAVEN ING DYSTROPHIC NAILS ANY # $60, Modifiers: XS , [id number] TRIM SKIN LESION $0, Modifiers: XS , GY * Follow Up:?prn * Images: * Sign off status: Completed true * Provider:?Mando Buchanan D.P.M. Date:?01/2025 Generated for Debbie gupta/Yancy/eTransmitting on:?11/20/2024 01:35 PM EDT History and Physical Notes * Examination Category Sub-Category Detail Notes Category Not es Neurological SENSORY: Neurological exa m reveals intact sensorium, pain sensation normal, vibration sensation intact, pinprick sensation is normal in the lower extremities, Pt denies, anesthesia, burning, paresthesia, tingling, B/L DEEP TENDON REFLEXES: Achilles, 2/4, B/L Dermatologic SKIN FINDINGS: Skin exam reveal s normal texture, elasticity, and turgor. There are no masses. The interspaces are clear , Skin exam reveals Keratotic lesion(s) located sub 4th MTH left Orthopedic MUSCLE STRENGTH: 5/5 all groups in a symm etrical fashion , B/L General Examination GENERAL APPEARANCE: Reveals a pleasant, alert, well- nourished, well-developed, well hydrated individual, who demonstrates proper attention to hygiene/body habitus, and is in no acute distress, Pt serves as own historian for office visit today ORIENTED: person, place, and t sam Vascular DP PULSES (B): 3/4, B/L PT PULSES (B): 3/4, B/L CAPILLARY FILL TIME: immediate, all digi ts, B/L TEMPERTURE GRADIENT (C): warm to cool, p roximal to distal, B/L TROPHIC CONDITION-TEXTURE/ELASTICITY/TURGOR/HAIR GROWTH (B): normal, B/L EDEMA (C): absent, B/L PIGMENTATION: normal, B/L Nails NAILS are: Elongated, overg rown, dystrophic, , TA, T1, T2, T3, T4, T5, T6, T7, T8, T9
--- OUTSIDE RECORDS SUMMARY | 2024-11-20 13:36 | XMS_ITS | Patient Health Record ---
Author Organization [facility] [place] Address [address] [place] [address] Care Team Providers Care Slubber Operator Name Role Phone Kieran CHRISTIANSON, Urban Primary Care Provider UnavailMando Martinez Unavailable [phone] Allergies No Known Allergies Reason For Referral No Information Medications Medication SIG (Take, Route, Frequency, Duration) [...] points) Points 2 Interpretation Negative Vital Signs Blood pressure diastolic 63 mm Hg 07/22/2024 Height 5ft 6in in 07/22/2024 Blood pressure systolic 103 mm Hg 07/22/2024 Weight 160 lbs 07/22/2024 BMI 25.82 kg/m2 07/22/2024 Procedures Procedure Date Ordered Date Performed Result Body Sit e 94027-FTMC SKIN LESION 07/22/2024 N/A T4824-FTKNITIS DYSTROPHIC NAILS ANY # 07/22/2024 N/A Encounters Encounter Location Date Provider Diagnosis [address] [address] 07/22/2024 Mando Buchanan Nail dystrophy L60.3 and Keratoma L57.0 Assessments Encounter Date Diagnosis (ICD Code) Assessment Notes Treatment Notes Treatment Clinical Notes Section Notes 07/22/2024 Nail dystrophy (ICD-10 - L60.3) 07/22/2024 Keratoma (ICD-10 - L57.0) Plan Of Treatment Pending Test Test Name Order Date 36753-DTIW SKIN LESION 07/22/2024 I7015-COLEZIEV DYSTROPHIC NAILS ANY # Next Appt Details Provider Name:Joi sim, 12/05/2024 12:45:00 PM, [address] [facility], [address], [place], [address], Insurance Providers Payer Name Payer Address Payer Phone Subscriber Number Group Number Insured Name Patient Relationship to Insured Coverage Start Date Coverage End Date [employer] [address] [place] [address] [id number] Nain Vizcaino Self - patient is the insured 8 Medical (General) History Medical History History ICD Code Arthritis Measles Mumps Osteoporosis Surgical History Surgery Date(Month/Year) Heart stent 11/2018
== END 2024-11-20 12:49 | disposition home or self-care (01) ==
PROVIDERS: PCP Internal Medicine; Visit Provider Internal Medicine
DX: I25.10 Atherosclerotic heart disease of native coronary artery without angina pectoris (principal); Z95.5 Presence of coronary angioplasty implant and graft; I10 Essential (primary) hypertension
CPT/HCPCS: 99213; G2211

== ENCOUNTER → 2024-11-20 12:14 | Outpatient (BNVA) | payer MEDICARE, SELFPAY | PROVIDERS: PCP Internal Medicine; Visit Provider Internal Medicine | DX: I25.10 Atherosclerotic heart disease of native coronary artery without angina pectoris (principal); I10 Essential (primary) hypertension; Z95.5 Presence of coronary angioplasty implant and graft | CPT/HCPCS: 99212 ==